=== PATIENT | female | born 1945 | race Caucasian/White ===

== ENCOUNTER 2017-10-24 22:46 | Emergency (ER) | payer MEDICARE, BC ==
--- NOTE | 2017-10-24 22:52 | EDM.PDOC ---
ED HPI GENERAL MEDICAL PROBLEM - General Chief Complaint: Chest Pain Stated Complaint: MATTIE AMB Time Seen by Provider: 10/24/17 22:51 - History of Present Illness INITIAL COMMENTS - FREE TEXT/NARRATIVE: 72-year-old female brought in by EMS with shortness of breath and chest pain. This started several days ago she's having worsening shortness of breath she started a Medrol Dosepak today. Her last nebulizer was just prior to coming in the patient has advanced COPD she uses 3 L of oxygen at home continuously. She uses oxygen through her [facility] as well. Patient is had episode of chest pain shortly before coming and this resolved with a single nitroglycerin. The patient had a fairly large TN about 11 years ago. Today the patient discussed her situation with her glaze sprayer in [place] who started her on doxycycline and a Medrol Dosepak. - Related Data Allergies Allergy/AdvReac Type Severity Reaction Status Date / Time pravastatin sodium Allergy Abdominal Verified 10/24/17 22:53 [From Pravachol] Cramps rosuvastatin Allergy Abdominal Verified 10/24/17 22:53 Cramps simvastatin Allergy Abdominal Verified 10/24/17 22:53 Cramps atorvastatin calcium AdvReac Abdominal Verified 10/24/17 22:53 [From Lipitor] Cramps rosuvastatin calcium AdvReac Abdominal Verified 10/24/17 22:53 [From Crestor] Cramps Home Meds: Home Meds Carvedilol [Coreg] 6.25 mg PO BID 05/18/15 [History] Furosemide [Lasix] 80 mg PO DAILY 05/18/15 [History] Isosorbide Mononitrate [Imdur] 60 mg PO BID 05/18/15 [History] Levothyroxine 200 mcg PO DAILY 05/18/15 [History] Losartan [Cozaar] 25 mg PO DAILY 05/18/15 [History] Potassium Chloride [Klor-Con M20] 20 meq PO BID 05/18/15 [History] Tiotropium [Spiriva HandiHaler] 2 puff INH DAILY 05/18/15 [History] Zolpidem [Ambien] 5 mg PO BEDTIME 05/18/15 [History] metFORMIN [Glucophage XR] 500 mg PO DAILY 05/18/15 [History] Albuterol [Proventil Neb Soln] 1 ampule INH Q6HR PRN 09/08/15 [History] Citalopram [Celexa] 20 mg PO DAILY 02/25/16 [History] Pravastatin [Pravachol] 80 mg PO DAILY 02/25/16 [History] methylPREDNISolone [Medrol] 4 mg PO ASDIRECTED #1 dosepk 09/27/16 [Rx] Doxycycline [Vibramycin] 100 mg PO BID 10/24/17 [History] Furosemide 40 mg PO BEDTIME 10/24/17 [History] LORazepam 0.5 mg PO ASDIRECTED PRN 10/24/17 [History] Nitroglycerin [Nitrostat] 0.4 mg SL ASDIRECTED 10/24/17 [History] Pantoprazole Sodium [Protonix] 40 mg DAILY 10/24/17 [History] LORazepam [Ativan] 0.5 mg PO Q12H PRN #15 tablet 10/25/17 [Rx] Past Medical History HEENT History: Reports: Impaired Vision Cardiovascular History: Reports: TN, Other (See Below) Other Cardiovascular History: stents placed, peripheral artery disease, TN 2006. Respiratory History: Reports: COPD, SOB Gastrointestinal History: Reports: Hiatal Hernia Genitourinary History: Reports: None [employer] History: Reports: Psychiatric History: Reports: Anxiety Endocrine/Metabolic History: Reports: Diabetes, Type II, Hypothyroidism Other Endocrine/Metabolic History: Pt takes Metformin - Past Surgical History HEENT Surgical History: Reports: Adenoidectomy, Cataract Surgery, Tonsillectomy GI Surgical History: Reports: Appendectomy, Cholecystectomy, Hernia Repair/Other Social & Family History - Family History Cardiac: Reports: Blood Clots/VTE/DVT, Bypass, TN Other Cardiac Family History: Mother had TN. Other Respiratory Family Hisory: Brother of lung CA. Neurological: Reports: CVA Endocrine/Metabolic: Reports: Diabetes, type II Oncologic: Reports: Lung Other Oncologic Family History: Brother of lung CA. - Tobacco Use Smoking Status *Q: Former Smoker Years of Tobacco use: 30 Packs/Tins Daily: 2 Used Tobacco, but Quit: Yes Month Tobacco Last Used: 2006 Second Hand Smoke Exposure: Yes - Caffeine Use Caffeine Use: Reports: None Caffeine Use Comment: 1-2 cups per day - Recreational Drug Use Recreational Drug Use: No ED ROS GENERAL - Review of Systems Review Of Systems: See Below Constitutional: Reports: Fever (Subjective), Chills HEENT: Reports: No Symptoms Respiratory: Reports: Shortness of Breath, Wheezing, Cough, Sputum Cardiovascular: Reports: Chest Pain, Dyspnea on Exertion. Denies: Palpitations Endocrine: Reports: No Symptoms GI/Abdominal: Reports: No Symptoms : Reports: No Symptoms Musculoskeletal: Reports: No Symptoms Skin: Reports: No Symptoms Neurological: Reports: No Symptoms Psychiatric: Reports: Anxiety. Denies: No Symptoms Hematologic/Lymphatic: Reports: No Symptoms ED EXAM, GENERAL - Physical Exam Exam: See Below Exam Limited By: No Limitations General Appearance: Alert, Moderate Distress, Other (From anxiety breathing difficulties but she is otherwise cooperative) Eye Exam: Bilateral Eye: Normal Inspection Ears: Normal External Exam, Normal Canal, Hearing Grossly Normal, Normal TMs Nose: Normal Inspection, Normal Mucosa, No Blood Throat/Mouth: Normal Inspection, Normal Lips, Normal Teeth, Normal Gums, Normal Oropharynx, Normal Voice, No Airway Compromise Head: Atraumatic, Normocephalic Neck: Normal Inspection, Supple, Non-Tender, Full Range of Motion. No: Lymphadenopathy (L), Lymphadenopathy (R) Respiratory/Chest: Lungs Clear, Decreased Breath Sounds, Other (Significant only diminished breath sounds O2 saturation good will wean her off the nonrebreather interring get her to around 94% and see how she does) Cardiovascular: Regular Rate, Rhythm, No Murmur, Tachycardia (Mild tachycardia regular rate and rhythm), Other (Trace pitting edema around the ankles). No: No Edema, Irregularly Irregular GI/Abdominal: Normal Bowel Sounds, Soft, Non-Tender, Other (Obese) Extremities: Other (Trace pitting edema around the ankles). No: No Pedal Edema , Leg Pain Neurological: Alert, Oriented, Normal Cognition Psychiatric: Anxious Skin Exam: Warm, Dry, Intact Lymphatic: No Adenopathy Course - Vital Signs Last Recorded V/S: Last Vital Signs Temp 36.9 C 10/24/17 22:50 Pulse 102 H 10/24/17 23:24 Resp 37 H 10/24/17 22:50 BP 138/96 H 10/24/17 22:50 Pulse Ox 100 10/24/17 22:50 - Orders/Labs/Meds Orders: Active Orders 24 hr Category Date Time Status EKG Documentation Completion [RC] ASDIRECTED Care 10/24/17 22:58 Active RT Aerosol Therapy [RC] ASDIRECTED Care 10/24/17 23:08 Active Chest 1V Frontal [CR] Stat Exams 10/24/17 23:05 Taken EKG 12 Lead [EK] Stat Ther 10/24/17 22:58 Ordered Labs: Laboratory Tests 10/24/17 10/24/17 10/24/17 Range/Units 23:29 23:29 23:29 WBC 12.72 H (3.98-10.04) K/mm3 RBC 4.52 (3.98-5.22) M/mm3 Hgb 13.4 (11.2-15.7) gm/L Hct 41.1 (34.1-44.9) % MCV 90.9 (79.4-94.8) fl MCH 29.6 (25.6-32.2) pg MCHC 32.6 (32.2-35.5) g/dl RDW Std Deviation 45.9 (36.4-46.3) fL Plt Count 298 (182-369) K/mm3 MPV 9.9 (9.4-12.3) fl Neutrophils % (Manual) 89 H (40-60) % Band Neutrophils % 0 (0-10) % Lymphocytes % (Manual) 8 L (20-40) % Atypical Lymphs % 1 % Monocytes % (Manual) 1 L (2-10) % Eosinophils % (Manual) 0 L (0.7-5.8) % Basophils % (Manual) 0 L (0.1-1.2) Myelocytes % 1 Platelet Estimate Adequate Plt Morphology Comment Normal Poikilocytosis 1+ slight Anisocytosis 1+ slight Microcytosis 1+ slight Macrocytosis 1+ slight Ovalocytes 1+ slight RBC Morph Comment Abnormal PT 10.6 (8.0-13.0) SECONDS INR 0.97 APTT 25 (22-36) SECONDS Sodium 137 (136-145) mEq/L Potassium 4.8 (3.5-5.1) mEq/L Chloride 103 (98-107) mEq/L Carbon Dioxide 24 (21-32) mEq/L Anion Gap 14.8 (5-15) BUN 10 (7-18) mg/dL Creatinine 0.9 (0.55-1.02) mg/dL Est Cr Clr Drug Dosing 51.34 mL/min Estimated GFR (MDRD) > 60 (>60) mL/min BUN/Creatinine Ratio 11.1 L (14-18) Glucose 332 H (83-115) mg/dL Calcium 9.2 (8.5-10.1) mg/dL Total Bilirubin 0.5 (0.2-1.0) mg/dL AST 15 (15-37) U/L ALT 29 (14-59) U/L Alkaline Phosphatase 113 (46-116) U/L Troponin I < 0.017 (0.00-0.056) ng/mL NT-Pro-B Natriuret Pep (0-125) pg/mL Total Protein 7.4 (6.4-8.2) g/dl Albumin 3.6 (3.4-5.0) g/dl Globulin 3.8 gm/dL Albumin/Globulin Ratio 1.0 (1-2) 10/24/17 Range/Units 23:29 WBC (3.98-10.04) K/mm3 RBC (3.98-5.22) M/mm3 Hgb (11.2-15.7) gm/L Hct (34.1-44.9) % MCV (79.4-94.8) fl MCH (25.6-32.2) pg MCHC (32.2-35.5) g/dl RDW Std Deviation (36.4-46.3) fL Plt Count (182-369) K/mm3 MPV (9.4-12.3) fl Neutrophils % (Manual) (40-60) % Band Neutrophils % (0-10) % Lymphocytes % (Manual) (20-40) % Atypical Lymphs % % Monocytes % (Manual) (2-10) % Eosinophils % (Manual) (0.7-5.8) % Basophils % (Manual) (0.1-1.2) Myelocytes % Platelet Estimate Plt Morphology Comment Poikilocytosis Anisocytosis Microcytosis Macrocytosis Ovalocytes RBC Morph Comment PT (8.0-13.0) SECONDS INR APTT (22-36) SECONDS Sodium (136-145) mEq/L Potassium (3.5-5.1) mEq/L Chloride (98-107) mEq/L Carbon Dioxide (21-32) mEq/L Anion Gap (5-15) BUN (7-18) mg/dL Creatinine (0.55-1.02) mg/dL Est Cr Clr Drug Dosing mL/min Estimated GFR (MDRD) (>60) mL/min BUN/Creatinine Ratio (14-18) Glucose (83-115) mg/dL Calcium (8.5-10.1) mg/dL Total Bilirubin (0.2-1.0) mg/dL AST (15-37) U/L ALT (14-59) U/L Alkaline Phosphatase (46-116) U/L Troponin I (0.00-0.056) ng/mL NT-Pro-B Natriuret Pep 3008 H (0-125) pg/mL Total Protein (6.4-8.2) g/dl Albumin (3.4-5.0) g/dl Globulin gm/dL Albumin/Globulin Ratio (1-2) Meds: Medications Discontinued Medications Generic Name Dose Route Start Last Admin Trade Name Freq PRN Reason Stop Dose Admin Albuterol/Ipratropium 3 ml 10/24/17 23:07 10/24/17 23:21 Duoneb 3.0-0.5 Mg/3 Ml NEB 10/24/17 23:08 3 ml ONETIME ONE Administration Furosemide 40 mg 10/24/17 23:47 10/24/17 23:55 Lasix IVPUSH 10/24/17 23:48 40 mg NOW ONE Administration Lorazepam 0.5 mg 10/24/17 23:07 10/24/17 23:33 Ativan IVPUSH 10/24/17 23:08 0.5 mg ONETIME ONE Administration Methylprednisolone Sodium Succinate 125 mg 10/24/17 23:07 10/24/17 23:36 Solu-Medrol IVPUSH 10/24/17 23:08 125 mg ONETIME ONE Administration - Re-Assessments/Exams Free Text/Narrative Re-Assessment/Exam: 10/24/17 23:48 Chest x-ray reviewed which is suggestive of CHF she did just take her evening medications including 40 mg of Lasix by mouth will add an additional 40 mg IV Lasix. Her EKG shows a regular mild tachycardia rate 112 she has a history of atrial fibrillation P waves are hard to see in all leads however EKG is probably more consistent with atrial fibrillation with a regular rhythm at this point. 10/25/17 01:48 Remarkable labs include a proBNP of just slightly over for 3000. Blood sugar 332 , she was started on Medrol Dosepak today. And with her shortness of breath and diminished breath sounds she received 125 mg of Solu-Medrol here. The patient received a dose of Ativan early in her stay in the emergency room as she was quite anxious this did help her significantly. After the IV Lasix as the patient feels much better she is insistent on going home. Did discuss observation, she wants to go home. She should increase her Lasix to 80 mg twice daily she should also follow-up with her regular physician tomorrow for recheck. Recheck her blood sugar and to arrange close outpatient follow-up to get her through this. Her potassium is 4.8 we will not increase her supplemental potassium at this point. The patient may need an echocardiogram if one has not been done recently to reassess her cardiac function. Departure - Departure Time of Disposition: : Disposition: Home, Self-Care 01 Clinical Impression: Congestive heart failure Prescriptions: LORazepam [Ativan] 0.5 mg PO Q12H PRN #15 tablet PRN Reason: Anxiety Referrals: PCP,None [Ordering Only Provider] - Forms: ED Department Discharge Additional Instructions: Return to the emergency room with any questions problems or worsening symptoms. Increase her Lasix to 80 mg twice a day, do this for 3 days, and then per recommendations of your regular physician. Do not change the dose of your potassium supplement. Follow-up with your regular doctor tomorrow for recheck. Continue the Medrol Dosepak and the doxycycline. - My Orders Last 24 Hours: My Active Orders 10/24/17 22:58 EKG Documentation Completion [RC] ASDIRECTED EKG 12 Lead [EK] Stat 10/24/17 23:05 Chest 1V Frontal [CR] Stat 10/24/17 23:08 RT Aerosol Therapy [RC] ASDIRECTED - Assessment/Plan Last 24 Hours: My Active Orders 10/24/17 22:58 EKG Documentation Completion [RC] ASDIRECTED EKG 12 Lead [EK] Stat 10/24/17 23:05 Chest 1V Frontal [CR] Stat 10/24/17 23:08 RT Aerosol Therapy [RC] ASDIRECTED
[2017-10-24 22:53] VITALS: BP 138/96
[2017-10-24] MEDS ORDERED: Albuterol/Ipratropium 3.0-0.5 MG/3 ML Neb Soln NEB ONE (23:07)
[2017-10-24] MEDS ORDERED: LORazepam 2 MG/ML SDV IVPUSH ONE (23:07)
[2017-10-24] MEDS ORDERED: methylPREDNISolone Sodium Succinate 125 MG/2 ML SDV IVPUSH ONE (23:07)
[2017-10-24] MEDS ORDERED: Furosemide 40 MG/4 ML VIAL IVPUSH ONE (23:47)
--- NOTE | 2017-10-25 06:44 | CR ---
Chest: Portable view of the chest was obtained. Comparison: Prior chest x-ray of 09/27/16. Heart size appears slightly enlarged. Tortuous thoracic aorta is seen. Lung markings are diffusely increased which appear stable from previous exam. Emphysematous change is noted. Bony structures are grossly intact. Impression: 1. Findings as noted above. Nothing acute is appreciated on portable chest x-ray when compared to prior exam. Diagnostic code #2
== END 2017-10-25 02:13 | disposition home or self-care (01) ==
LOC: JD.ED 22:46
DX: I50.9 Heart failure, unspecified (principal); E11.9 Type 2 diabetes mellitus without complications; E03.9 Hypothyroidism, unspecified; Z88.8 Allergy status to other drugs, medicaments and biological substances; Z79.899 Other long term (current) drug therapy; Z79.84 Long term (current) use of oral hypoglycemic drugs; Z87.891 Personal history of nicotine dependence
CPT/HCPCS: 36415; 71045; 80053; 83880; 84484; 85025; 85610; 85730; 87804; 93005; 94640; 96374; 96375; 99285; J1940; J2060; J2930; 99284

== ENCOUNTER 2021-05-12 15:11 | Emergency (ER) | payer MEDICARE, BC ==
[2021-05-12 15:24] VITALS: BP 125/54; PULSE 54
[2021-05-12] MEDS ORDERED: Sodium Chloride 0.9% 10 ML Syringe FLUSH PRN (16:05)
--- NOTE | 2021-05-12 16:39 | EDM.PDOC ---
ED HPI GENERAL MEDICAL PROBLEM - General Chief Complaint: Respiratory Problem Stated Complaint: SOB Time Seen by Provider: 05/12/21 15:21 Source of Information: Reports: Patient History Limitations: Reports: No Limitations - History of Present Illness INITIAL COMMENTS - FREE TEXT/NARRATIVE: 75-year-old female presents the emergency department today with a 3-day history of increased shortness of breath. Patient is oxygen dependent and has been for the past 5 years. She normally wears oxygen at 3 L per nasal cannula however had worsening shortness of breath this morning. She called her primary care provider's office and the nurse advised her to increase her oxygen to 5 L per nasal cannula. She does have an albuterol nebulizer which she uses at home and states this helps for about an hour but then begins to feel very short of breath again. Patient states she feels as though she just cannot catch her breath and that her chest feels "tight". She has an occasional cough however it is nonproductive. She denies any fever, chills, nausea, vomiting or diarrhea. She denies any abdominal pain. She denies any headache or body aches however she does state that she has arthritis pain chronically. Patient does have a history of OH back in 2005 with stent placement. She does have a history of atrial fibrillation for which she takes Eliquis. She does have a history of smoking 1 and half packs a day for 25 years however she states she quit back in 2005. Her primary care provider is Dr. Vora however she states she is switching over to Dr. Dave and does have an appointment scheduled with him for tomorrow. Chest Pain Score (Numeric/FACES): 9 - Related Data Allergies Allergy/AdvReac Type Severity Reaction Status Date / Time No Known Allergies Allergy Verified 05/12/21 15:18 Home Meds: Home Meds Carvedilol [Coreg] 3.125 mg PO BID 05/18/15 [History] Furosemide [Lasix] 80 mg PO BID 05/18/15 [History] Isosorbide Mononitrate [Imdur] 60 mg PO BID 05/18/15 [History] Levothyroxine 112 mcg PO DAILY 05/18/15 [History] Losartan [Cozaar] 25 mg PO DAILY 05/18/15 [History] Potassium Chloride [Klor-Con M20] 20 meq PO BID 05/18/15 [History] Zolpidem [Ambien] 10 mg PO BEDTIME 05/18/15 [History] Citalopram [Celexa] 40 mg PO DAILY 02/25/16 [History] Pravastatin [Pravachol] 40 mg PO DAILY 02/25/16 [History] Nitroglycerin [Nitrostat] 0.4 mg SL ASDIRECTED 10/24/17 [History] Apixaban [Eliquis] 5 mg PO BID 05/04/19 [History] Montelukast [Singulair] 10 mg PO BEDTIME 05/04/19 [History] predniSONE [Prednisone] 40 mg PO DAILY #8 tablet 05/12/21 [Rx] Past Medical History HEENT History: Reports: Impaired Vision Cardiovascular History: Reports: Afib, CAD, High Cholesterol, Hypertension, OH, PVD, Other (See Below) Other Cardiovascular History: stents placed, peripheral artery disease, OH 2006. Respiratory History: Reports: COPD, SOB Other Respiratory History: emphasema Gastrointestinal History: Reports: GERD, Hiatal Hernia Genitourinary History: Reports: Urinary Incontinence [employer] History: Reports: Musculoskeletal History: Reports: Osteoarthritis Neurological History: Reports: Other (See Below) Other Neuro History: back surgery-1995 Psychiatric History: Reports: Anxiety Endocrine/Metabolic History: Reports: Diabetes, Type II, Hypothyroidism, Obesity/BMI 30+ Other Endocrine/Metabolic History: Pt takes Metformin Oncologic (Cancer) History: Reports: Cervix - Infectious Disease History Infectious Disease History: Reports: Chicken Pox, Measles, Mumps, Scarlet Fever - Past Surgical History HEENT Surgical History: Reports: Adenoidectomy, Cataract Surgery, Tonsillectomy Cardiovascular Surgical History: Reports: Coronary Artery Stent, Other (See Below) Other Cardiovascular Surgeries/Procedures: 6 stents Respiratory Surgical History: Reports: None GI Surgical History: Reports: Appendectomy, Cholecystectomy, Hernia, Abdominal Female Surgical History: Reports: Hysterectomy Endocrine Surgical History: Reports: None Musculoskeletal Surgical History: Reports: None Oncologic Surgical History: Reports: None Dermatological Surgical History: Reports: None Social & Family History - Family History Family Medical History: No Pertinent Family History Cardiac: Reports: Blood Clots/VTE/DVT, Bypass, OH Other Cardiac Family History: Mother had OH. Other Respiratory Family Hisory: Brother of lung CA. Neurological: Reports: CVA Endocrine/Metabolic: Reports: Diabetes, type II Oncologic: Reports: Lung Other Oncologic Family History: Brother of lung CA. 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 ED EXAM, GENERAL - Physical Exam Exam: See Below Exam Limited By: No Limitations General Appearance: Alert, WD/WN, No Apparent Distress Ears: Normal External Exam, Hearing Grossly Normal #1 Interpretation EKG Date: 05/12/21 Time: 16:26 Rhythm: A-Fib Rate (Beats/Min): 58 [place]: Normal P-Wave: Absent QRS: Normal ST-T: Normal QT: Normal EKG Interpretation Comments: Per Dr Salvador interpretation; atrial fibrillation at 58 bpm Nonspecific interventricular conduction delay; borderline repolarization abnormality; baseline wander in leads V6 Course - Vital Signs Text/Narrative:: As stated above patient presents with a 3-day history of worsening shortness of breath and feeling like she has chest "tightness". Upon evaluation, patient's lung sounds are diminished posteriorly in all arciniega. O2 saturations at the time of my assessment are 100% on 5 L of oxygen per nasal cannula. I have ordered labs to include Covid swab, CBC, CMP, magnesium, C-reactive protein, D- dimer, troponin, proBNP, arterial blood gases, chest x-ray and an EKG. Last Recorded V/S: Last Vital Signs Temp 97.3 F 05/12/21 15:22 Pulse 54 L 05/12/21 15:22 Resp 24 H 05/12/21 15:22 BP 125/54 L 05/12/21 15:22 Pulse Ox 98 05/12/21 17:43 - Orders/Labs/Meds Orders: Active Orders 24 hr Category Date Time Status RT Aerosol Therapy [RC] ASDIRECTED Care 05/12/21 17:43 Active Chest 1V Frontal [CR] Stat Exams 05/12/21 16:05 Taken ABG [BLOOD GAS ARTERIAL] [BG] Stat Lab 05/12/21 16:06 Ordered LORazepam [Ativan] Med 05/12/21 18:01 Once 0.5 mg PO ONETIME ONE Sodium Chloride 0.9% [Saline Flush] Med 05/12/21 16:05 Active 10 ml FLUSH ASDIRECTED PRN Saline Lock Insert [OM.PC] Stat Oth 05/12/21 16:05 Ordered Medication Orders Sodium Chloride (Sodium Chloride 0.9% 10 Ml Syringe) 10 ml FLUSH ASDIRECTED PRN PRN Reason: Keep Vein Open Last Admin: 05/12/21 16:39 Dose: 10 ml Documented by: RAYO Labs: Laboratory Tests 05/12/21 05/12/21 05/12/21 Range/Units 16:08 16:29 16:35 WBC 5.65 (3.98-10.04) K/mm3 RBC 4.41 (3.98-5.22) M/mm3 Hgb 13.8 (11.2-15.7) gm/dl Hct 43.9 (34.1-44.9) % MCV 99.5 H (79.4-94.8) fl MCH 31.3 (25.6-32.2) pg MCHC 31.4 L (32.2-35.5) g/dl RDW Std Deviation 51.4 H (36.4-46.3) fL Plt Count 254 (182-369) K/mm3 MPV 9.3 L (9.4-12.3) fl Neut % (Auto) 62.9 (34.0-71.1) % Lymph % (Auto) 23.4 (19.3-51.7) % [place] % (Auto) 10.8 (4.7-12.5) % Eos % (Auto) 2.3 (0.7-5.8) Baso % (Auto) 0.4 (0.1-1.2) % Neut # (Auto) 3.56 (1.56-6.13) K/mm3 Lymph # (Auto) 1.32 (1.18-3.74) K/mm3 [place] # (Auto) 0.61 H (0.24-0.36) K/mm3 Eos # (Auto) 0.13 (0.04-0.36) K/mm3 Baso # (Auto) 0.02 (0.01-0.08) K/mm3 D-Dimer, Quantitative (0.19-0.50) mg/L Puncture Site Rt radial ABG pH 7.41 (7.35-7.45) ABG pCO2 41.5 (35.0-45.0) mmHg ABG pO2 77.0 L (80.0-100.0) mmHg ABG HCO3 25.7 (22.0-26.0) meq/L ABG O2 Saturation 97.4 H (96.0-97.0) % ABG Base Excess 1.4 (-2-2.0) Kyree Test Positive O2 Delivery Device Nasal cannula Oxygen Flow Rate 5.0 Sodium (136-145) mEq/L Potassium (3.5-5.1) mEq/L Chloride (98-107) mEq/L Carbon Dioxide (21-32) mEq/L Anion Gap (5-15) BUN (7-18) mg/dL Creatinine (0.55-1.02) mg/dL Est Cr Clr Drug Dosing mL/min Estimated GFR (MDRD) (>60) mL/min BUN/Creatinine Ratio (14-18) Glucose (70-99) mg/dL Calcium (8.5-10.1) mg/dL Magnesium (1.8-2.4) mg/dL Total Bilirubin (0.2-1.0) mg/dL AST (15-37) U/L ALT (14-59) U/L Alkaline Phosphatase (46-116) U/L Troponin I (0.00-0.056) ng/mL C-Reactive Protein (<1.0) mg/dL NT-Pro-B Natriuret Pep (0-450) pg/mL Total Protein (6.4-8.2) g/dl Albumin (3.4-5.0) g/dl Globulin gm/dL Albumin/Globulin Ratio (1-2) SARS-CoV-2 RNA (SHASHI) Negative (NEGATIVE) 05/12/21 05/12/21 05/12/21 Range/Units 16:35 16:35 16:35 WBC (3.98-10.04) K/mm3 RBC (3.98-5.22) M/mm3 Hgb (11.2-15.7) gm/dl Hct (34.1-44.9) % MCV (79.4-94.8) fl MCH (25.6-32.2) pg MCHC (32.2-35.5) g/dl RDW Std Deviation (36.4-46.3) fL Plt Count (182-369) K/mm3 MPV (9.4-12.3) fl Neut % (Auto) (34.0-71.1) % Lymph % (Auto) (19.3-51.7) % [place] % (Auto) (4.7-12.5) % Eos % (Auto) (0.7-5.8) Baso % (Auto) (0.1-1.2) % Neut # (Auto) (1.56-6.13) K/mm3 Lymph # (Auto) (1.18-3.74) K/mm3 [place] # (Auto) (0.24-0.36) K/mm3 Eos # (Auto) (0.04-0.36) K/mm3 Baso # (Auto) (0.01-0.08) K/mm3 D-Dimer, Quantitative 0.32 (0.19-0.50) mg/L Puncture Site ABG pH (7.35-7.45) ABG pCO2 (35.0-45.0) mmHg ABG pO2 (80.0-100.0) mmHg ABG HCO3 (22.0-26.0) meq/L ABG O2 Saturation (96.0-97.0) % ABG Base Excess (-2-2.0) Kyree Test O2 Delivery Device Oxygen Flow Rate Sodium 144 (136-145) mEq/L Potassium 3.2 L (3.5-5.1) mEq/L Chloride 107 (98-107) mEq/L Carbon Dioxide 30 (21-32) mEq/L Anion Gap 10.2 (5-15) BUN 9 (7-18) mg/dL Creatinine 0.8 (0.55-1.02) mg/dL Est Cr Clr Drug Dosing 55.13 mL/min Estimated GFR (MDRD) > 60 (>60) mL/min BUN/Creatinine Ratio 11.3 L (14-18) Glucose 112 H (70-99) mg/dL Calcium 9.0 (8.5-10.1) mg/dL Magnesium 2.4 (1.8-2.4) mg/dL Total Bilirubin 0.7 (0.2-1.0) mg/dL AST 17 (15-37) U/L ALT 21 (14-59) U/L Alkaline Phosphatase 79 (46-116) U/L Troponin I < 0.017 (0.00-0.056) ng/mL C-Reactive Protein < 0.2 (<1.0) mg/dL NT-Pro-B Natriuret Pep 486 H (0-450) pg/mL Total Protein 7.6 (6.4-8.2) g/dl Albumin 3.8 (3.4-5.0) g/dl Globulin 3.8 gm/dL Albumin/Globulin Ratio 1.0 (1-2) SARS-CoV-2 RNA (SHASHI) (NEGATIVE) Meds: Medications Generic Name Dose Route Start Last Admin Trade Name Freq PRN Reason Stop Dose Admin Sodium Chloride 10 ml 05/12/21 16:05 05/12/21 16:39 Sodium Chloride 0.9% 10 Ml Syringe FLUSH 10 ml ASDIRECTED PRN Administration Keep Vein Open Discontinued Medications Generic Name Dose Route Start Last Admin Trade Name Freq PRN Reason Stop Dose Admin Albuterol 2.5 mg 05/12/21 17:43 05/12/21 17:53 Albuterol 0.083% 2.5 Mg/3 Ml Neb Soln NEB 05/12/21 17:44 2.5 mg ONETIME ONE Administration Lorazepam 0.5 mg 05/12/21 16:40 05/12/21 16:45 Lorazepam 0.5 Mg Tab PO 05/12/21 16:41 0.5 mg ONETIME ONE Administration Prednisone 40 mg 05/12/21 17:55 Prednisone 20 Mg Tab PO 05/12/21 17:56 ONETIME ONE - Re-Assessments/Exams Free Text/Narrative Re-Assessment/Exam: 05/12/21 16:39 Patient is extremely anxious in the room and is stating that her BuSpar does not work. She is requesting something for anxiety at this time. I will order for her to receive 1/2 mg of Ativan p.o. x1 dose. 05/12/21 17:47 Hematology reveals a WBC of 5.65, hemoglobin 13.8, hematocrit 43.9, platelet count 254 Coagulation shows a D-dimer of 0.32 Chemistry reveals a sodium of 144, potassium 3.2, carbon dioxide 30, anion gap 10.2, BUN 9, creatinine 0.8, glucose 112, magnesium 2.4, troponin less than 0.017, C-reactive protein less than 0.2, proBNP 486 Patient is Covid negative ABGs show a pH of 7.41, PCO2 41.5, PO2 77.0, HCO3 25.7, O2 saturation 97.4, base excess 1.4 on 5 L of oxygen per nasal cannula Patient does use scheduled albuterol nebulizers at home and is requesting to have 1 now. I have ordered this for the patient. 05/12/21 17:49 [facility]Rad radiologist impression: The pulmonary vasculature is not engorged. The lungs are normal. There are no pleural effusions visualized. The heart demonstrates mild diffuse enlargement. Bones and joints are unremarkable. Impression: Mild cardiomegaly. 05/12/21 17:[address] Salvador, patient will be treated for COPD. She will receive her first dose of prednisone while here in the ED and then discharged to home. 05/12/21 18:02 Patient states that the Ativan helped significantly for her anxiety and states she feels as though she is breathing easier. She has asked me for a prescription for Ativan however she does have a appointment with her primary care provider in the morning. I will give her 1 tab to take home tonight and then she will need to get a prescription from her provider tomorrow. Departure - Departure Time of Disposition: 17:57 Disposition: Home, Self-Care 01 Condition: Fair Clinical Impression: COPD (chronic obstructive pulmonary disease) Qualifiers: COPD type: emphysema Emphysema type: unspecified Qualified Code(s): J43.9 - Emphysema, unspecified - Discharge Information Prescriptions: predniSONE [Prednisone] 40 mg PO DAILY #8 tablet Instructions: Chronic Obstructive Pulmonary Disease Exacerbation, [id number] Referrals: PCP,None [Primary Care Provider] - Adama Sorenson MD [Physician] - Forms: ED Department Discharge Additional Instructions: You were seen in the emergency department today with complaints of increased shortness of breath and chest tightness. Full cardiac work-up was completed which included EKG, chest x-ray and lab studies as well as arterial blood gases. All of these tests were essentially unremarkable other than your potassium level was slightly low. You were given 1 dose of potassium while in the emergency department. You were also given prednisone while in the emergency department. I suspect the cause of your shortness of breath is a COPD exacerbation. You were given prednisone 40 mg tab while in the emergency department. I have sent a prescription for prednisone 40 mg daily to be taken for the next 4 days starting tomorrow. Follow-up with Dr. Sorenson tomorrow as scheduled. Sepsis Event Note (ED) - Focused Exam Vital Signs: Vital Signs Temp Pulse Resp BP Pulse Ox Pulse Ox 05/12/21 17:43 98 05/12/21 15:22 97.3 F 54 L 24 H 125/54 L 99 - My Orders Last 24 Hours: My Active Orders 05/12/21 16:05 Chest 1V Frontal [CR] Stat Sodium Chloride 0.9% [Saline Flush] 10 ml FLUSH ASDIRECTED PRN Saline Lock Insert [OM.PC] Stat 05/12/21 16:06 ABG [BLOOD GAS ARTERIAL] [BG] Stat 05/12/21 17:43 RT Aerosol Therapy [RC] ASDIRECTED 05/12/21 18:01 LORazepam [Ativan] 0.5 mg PO ONETIME ONE - Assessment/Plan Last 24 Hours: My Active Orders 05/12/21 16:05 Chest 1V Frontal [CR] Stat Sodium Chloride 0.9% [Saline Flush] 10 ml FLUSH ASDIRECTED PRN Saline Lock Insert [OM.PC] Stat 05/12/21 16:06 ABG [BLOOD GAS ARTERIAL] [BG] Stat 05/12/21 17:43 RT Aerosol Therapy [RC] ASDIRECTED 05/12/21 18:01 LORazepam [Ativan] 0.5 mg PO ONETIME ONE
[2021-05-12] MEDS ORDERED: LORazepam 0.5 MG Tab PO ONE ×2 (16:40→18:01)
[2021-05-12] MEDS ORDERED: Albuterol 0.083% 2.5 MG/3 ML Neb Soln NEB ONE (17:43)
[2021-05-12] MEDS ORDERED: predniSONE 20 MG Tab PO ONE (17:55)
[2021-05-12] MEDS ORDERED: Potassium Chloride 20 MEQ Tab.ER PO ONE (18:05)
--- NOTE | 2021-05-12 19:45 | CR ---
Chest: Frontal view of the chest was obtained. Comparison: Prior chest x-ray of 05/04/19. Heart is enlarged. Tortuous thoracic aorta is seen. Lungs are clear with no acute parenchymal change. No discrete osseous abnormality is appreciated. Impression: 1. Cardiomegaly. 2. Nothing acute is otherwise seen on frontal chest x-ray. Diagnostic code #2 I agree with preliminary report from [facility], finalized on 05/12/21, 6:26 PM CDT, code 1
== END 2021-05-12 18:25 | disposition home or self-care (01) ==
LOC: JD.ED 15:11
DX: J43.9 Emphysema, unspecified (principal); I48.91 Unspecified atrial fibrillation; I25.10 Atherosclerotic heart disease of native coronary artery without angina pectoris; E78.00 Pure hypercholesterolemia, unspecified; I10 Essential (primary) hypertension; I25.2 Old myocardial infarction; E11.9 Type 2 diabetes mellitus without complications; E03.9 Hypothyroidism, unspecified; E66.9 Obesity, unspecified; Z79.84 Long term (current) use of oral hypoglycemic drugs; Z68.36 Body mass index [BMI] 36.0-36.9, adult; Z79.01 Long term (current) use of anticoagulants; Z79.899 Other long term (current) drug therapy; Z72.0 Tobacco use; Z20.822 Contact with and (suspected) exposure to COVID-19
CPT/HCPCS: 36415; 36600; 71045; 80053; 82803; 83735; 83880; 84484; 85025; 85379; 86140; 93005; 94640; 99285; A9270; J7512; U0002; 93010; 99283

== ENCOUNTER 2021-05-26 15:36 | Emergency (ER) | payer MEDICARE, BC ==
[2021-05-26 15:48] VITALS: BP 102/75; PULSE 77
--- NOTE | 2021-05-26 16:34 | EDM.PDOC ---
ED HPI GENERAL MEDICAL PROBLEM - General Chief Complaint: Respiratory Problem Stated Complaint: SOB Time Seen by Provider: 05/26/21 15:47 Source of Information: Reports: Patient, RN Notes Reviewed History Limitations: Reports: No Limitations - History of Present Illness INITIAL COMMENTS - FREE TEXT/NARRATIVE: Patient is a 75-year-old female presenting to the emergency department with complaints of worsening of shortness of breath. She has history of COPD and is chronically on 3 to 5 L of oxygen by nasal cannula. She reports that over the last few weeks, she has been experiencing worsening of shortness of breath. She was seen in this emergency department on 12 May and put on prednisone which she states did help her significantly; however, shortly after finishing the medication, her symptoms returned. She reports feeling anxious and feels that anxiety is likely a component of her shortness of breath. Last time she was in the ER, she received Ativan which she states did help. She was started on alprazolam by her primary care but states that this does not seem to be helping. She has tried buspirone in the past and states "that did nothing ". She denies any significant chest pain. She has had no fever, chills, nausea, vomiting, or diarrhea. Denies any recent sick contacts. She has received both Covid vaccinations. Chest Pain Score (Numeric/FACES): 7 - Related Data Allergies Allergy/AdvReac Type Severity Reaction Status Date / Time No Known Allergies Allergy Verified 05/26/21 15:48 Home Meds: Home Meds Carvedilol [Coreg] 3.125 mg PO BID 05/18/15 [History] Furosemide [Lasix] 80 mg PO BID 05/18/15 [History] Isosorbide Mononitrate [Imdur] 60 mg PO BID 05/18/15 [History] Levothyroxine 112 mcg PO DAILY 05/18/15 [History] Potassium Chloride [Klor-Con M20] 20 meq PO DAILY 05/18/15 [History] Zolpidem [Ambien] 5 mg PO BEDTIME 05/18/15 [History] Pravastatin [Pravachol] 40 mg PO DAILY 02/25/16 [History] Nitroglycerin [Nitrostat] 0.4 mg SL ASDIRECTED PRN 10/24/17 [History] Apixaban [Eliquis] 5 mg PO BID 05/04/19 [History] Montelukast [Singulair] 10 mg PO BEDTIME 05/04/19 [History] ALPRAZolam [Alprazolam] 0.25 mg PO TID PRN 05/26/21 [History] Albuterol [Proventil Neb Soln] 1 dose IH Q6H PRN 05/26/21 [History] Baclofen 5 mg PO BEDTIME 05/26/21 [History] Budesonide/Formoterol [Symbicort 160-4.5 MCG] 2 puff IH BID 05/26/21 [History] Cyanocobalamin (Vitamin B12) [Vitamin B12] 1,000 mcg PO DAILY 05/26/21 [History] Donepezil [Aricept] 5 mg PO BEDTIME 05/26/21 [History] Empagliflozin [Jardiance] 10 mg PO DAILY 05/26/21 [History] Fluticasone/Vilanterol [Breo Ellipta 200-25 MCG Inhalation Kit] 1 puff IH DAILY 05/26/21 [History] LORazepam [Ativan] 0.5 mg PO Q8H PRN #21 tab 05/26/21 [Rx] Sertraline [Zoloft] 25 mg PO DAILY 05/26/21 [History] Tiotropium [place] [Spiriva Respimat] 2 puff IH DAILY 05/26/21 [History] busPIRone HCl [Buspirone HCl] 7.5 mg PO TID 05/26/21 [History] metFORMIN [Glucophage] 250 mg PO DAILY 05/26/21 [History] predniSONE [Prednisone] 20 mg PO ASDIRECTED #15 tablet 05/26/21 [Rx] Past Medical History HEENT History: Reports: Impaired Vision Cardiovascular History: Reports: Afib, CAD, High Cholesterol, Hypertension, [place], PVD, Other (See Below) Other Cardiovascular History: stents placed, peripheral artery disease, [place] 2006. 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 Incontinence [place]CHER History: Reports: Musculoskeletal History: Reports: Osteoarthritis Neurological History: Reports: Other (See Below) Other Neuro History: back surgery-1995 Psychiatric History: Reports: Anxiety Endocrine/Metabolic History: Reports: Diabetes, Type II, Hypothyroidism, Obesity/BMI 30+ Other Endocrine/Metabolic History: Pt takes Metformin Oncologic (Cancer) History: Reports: Cervix - Infectious Disease History Infectious Disease History: Reports: Chicken Pox, Measles, Mumps, Scarlet Fever - Past Surgical History HEENT Surgical History: Reports: Adenoidectomy, Cataract Surgery, Tonsillectomy Cardiovascular Surgical History: Reports: Coronary Artery Stent, Other (See Below) Other Cardiovascular Surgeries/Procedures: 6 stents Respiratory Surgical History: Reports: None GI Surgical History: Reports: Appendectomy, Cholecystectomy, Hernia, Abdominal Female Surgical History: Reports: Hysterectomy Endocrine Surgical History: Reports: None Musculoskeletal Surgical History: Reports: None Oncologic Surgical History: Reports: None Dermatological Surgical History: Reports: None Social & Family History - Family History Family Medical History: No Pertinent Family History Cardiac: Reports: Blood Clots/VTE/DVT, Bypass, MO Other Cardiac Family History: Mother had MO. Other Respiratory Family Hisory: Brother of lung CA. Neurological: Reports: CVA Endocrine/Metabolic: Reports: Diabetes, type II Oncologic: Reports: Lung Other Oncologic Family History: Brother of lung CA. 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 Denies: Fever, Chills HEENT: Reports: No Symptoms Respiratory: Reports: Shortness of Breath, Wheezing, Cough Cardiovascular: Reports: Dyspnea on Exertion. Denies: Chest Pain Endocrine: Reports: No Symptoms GI/Abdominal: Reports: No Symptoms : Reports: No Symptoms Musculoskeletal: Reports: No Symptoms Skin: Reports: No Symptoms Neurological: Reports: No Symptoms Psychiatric: Reports: Anxiety Hematologic/Lymphatic: Reports: No Symptoms Immunologic: Reports: No Symptoms ED EXAM, GENERAL - Physical Exam Exam: See Below Exam Limited By: No Limitations General Appearance: Alert, WD/WN, No Apparent Distress Respiratory/Chest: No Respiratory Distress, Lungs Clear, No Accessory Muscle Use, Chest Non-Tender, Decreased Breath Sounds (Posteriorly throughout). No: Rhonchi, Wheezing Cardiovascular: Normal Peripheral Pulses, Regular Rate, Rhythm, No Edema, No Gallop, No JVD, No Murmur, No Rub GI/Abdominal: Normal Bowel Sounds, Soft, Non-Tender, No Organomegaly, No Distention, No Abnormal Bruit, No Mass Neurological: Alert, Oriented, CN II-XII Intact, Normal Cognition, Normal Gait, Normal Reflexes, No Motor/Sensory Deficits Psychiatric: Normal Affect, Normal Mood Skin Exam: Warm, Dry, Intact, Normal Color, No Rash #1 Interpretation EKG Date: 05/26/21 Time: 15:47 Rhythm: A-Flutter Rate (Beats/Min): 68 [place]: RAD-Right [place] Deviation P-Wave: Absent QRS: Other (RBB and LPFB) ST-T: Normal QT: Prolonged (moderately) Course - Vital Signs Last Recorded V/S: Last Vital Signs Temp 96.9 F 05/26/21 15:44 Pulse 77 05/26/21 15:44 Resp 20 05/26/21 15:44 BP 102/75 05/26/21 15:44 Pulse Ox 93 L 05/26/21 17:42 - Orders/Labs/Meds Orders: Active Orders 24 hr Category Date Time Status Chest 1V Frontal [CR] Stat Exams 05/26/21 15:51 Taken Labs: Laboratory Tests 05/26/21 05/26/21 05/26/21 Range/Units 15:53 16:14 16:14 WBC 8.71 (3.98-10.04) K/mm3 RBC 4.90 (3.98-5.22) M/mm3 Hgb 15.4 D (11.2-15.7) gm/dl Hct 49.0 H (34.1-44.9) % MCV 100.0 H (79.4-94.8) fl MCH 31.4 (25.6-32.2) pg MCHC 31.4 L (32.2-35.5) g/dl RDW Std Deviation 51.0 H (36.4-46.3) fL Plt Count 268 (182-369) K/mm3 MPV 9.8 (9.4-12.3) fl Neut % (Auto) 75.5 H (34.0-71.1) % Lymph % (Auto) 14.7 L (19.3-51.7) % [place] % (Auto) 7.6 (4.7-12.5) % Eos % (Auto) 1.7 (0.7-5.8) Baso % (Auto) 0.3 (0.1-1.2) % Neut # (Auto) 6.57 H (1.56-6.13) K/mm3 Lymph # (Auto) 1.28 (1.18-3.74) K/mm3 [place] # (Auto) 0.66 H (0.24-0.36) K/mm3 Eos # (Auto) 0.15 (0.04-0.36) K/mm3 Baso # (Auto) 0.03 (0.01-0.08) K/mm3 D-Dimer, Quantitative (0.19-0.50) mg/L Sodium 140 (136-145) mEq/L Potassium 4.1 (3.5-5.1) mEq/L Chloride 102 (98-107) mEq/L Carbon Dioxide 30 (21-32) mEq/L Anion Gap 12.1 (5-15) BUN 10 (7-18) mg/dL Creatinine 0.9 (0.55-1.02) mg/dL Est Cr Clr Drug Dosing 49.00 mL/min Estimated GFR (MDRD) > 60 (>60) mL/min BUN/Creatinine Ratio 11.1 L (14-18) Glucose 133 H (70-99) mg/dL Calcium 9.3 (8.5-10.1) mg/dL Total Bilirubin 0.9 (0.2-1.0) mg/dL AST 15 (15-37) U/L ALT 24 (14-59) U/L Alkaline Phosphatase 92 (46-116) U/L Troponin I < 0.017 (0.00-0.056) ng/mL C-Reactive Protein 0.3 (<1.0) mg/dL NT-Pro-B Natriuret Pep (0-450) pg/mL Total Protein 8.4 H (6.4-8.2) g/dl Albumin 4.3 (3.4-5.0) g/dl Globulin 4.1 gm/dL Albumin/Globulin Ratio 1.1 (1-2) SARS-CoV-2 RNA (SHASHI) Negative (NEGATIVE) 05/26/21 05/26/21 Range/Units 16:14 16:14 WBC (3.98-10.04) K/mm3 RBC (3.98-5.22) M/mm3 Hgb (11.2-15.7) gm/dl Hct (34.1-44.9) % MCV (79.4-94.8) fl MCH (25.6-32.2) pg MCHC (32.2-35.5) g/dl RDW Std Deviation (36.4-46.3) fL Plt Count (182-369) K/mm3 MPV (9.4-12.3) fl Neut % (Auto) (34.0-71.1) % Lymph % (Auto) (19.3-51.7) % [place] % (Auto) (4.7-12.5) % Eos % (Auto) (0.7-5.8) Baso % (Auto) (0.1-1.2) % Neut # (Auto) (1.56-6.13) K/mm3 Lymph # (Auto) (1.18-3.74) K/mm3 [place] # (Auto) (0.24-0.36) K/mm3 Eos # (Auto) (0.04-0.36) K/mm3 Baso # (Auto) (0.01-0.08) K/mm3 D-Dimer, Quantitative 0.36 (0.19-0.50) mg/L Sodium (136-145) mEq/L Potassium (3.5-5.1) mEq/L Chloride (98-107) mEq/L Carbon Dioxide (21-32) mEq/L Anion Gap (5-15) BUN (7-18) mg/dL Creatinine (0.55-1.02) mg/dL Est Cr Clr Drug Dosing mL/min Estimated GFR (MDRD) (>60) mL/min BUN/Creatinine Ratio (14-18) Glucose (70-99) mg/dL Calcium (8.5-10.1) mg/dL Total Bilirubin (0.2-1.0) mg/dL AST (15-37) U/L ALT (14-59) U/L Alkaline Phosphatase (46-116) U/L Troponin I (0.00-0.056) ng/mL C-Reactive Protein (<1.0) mg/dL NT-Pro-B Natriuret Pep 315 (0-450) pg/mL Total Protein (6.4-8.2) g/dl Albumin (3.4-5.0) g/dl Globulin gm/dL Albumin/Globulin Ratio (1-2) SARS-CoV-2 RNA (SHASHI) (NEGATIVE) Meds: Medications Discontinued Medications Generic Name Dose Route Start Last Admin Trade Name [place] PRN Reason Stop Dose Admin Albuterol/Ipratropium 3 ml 05/26/21 17:24 05/26/21 17:42 Albuterol/Ipratropium 3.0-0.5 Mg/3 Ml Neb Soln NEB 05/26/21 17:25 3 ml ONETIME ONE Administration Lorazepam 0.5 mg 05/26/21 17:25 05/26/21 17:33 Lorazepam 0.5 Mg Tab PO 05/26/21 17:26 0.5 mg ONETIME ONE Administration Prednisone 40 mg 05/26/21 17:25 05/26/21 17:33 Prednisone 10 Mg Tab PO 05/26/21 17:26 40 mg ONETIME ONE Administration Prednisone Confirm 05/26/21 17:34 Prednisone 10 Mg Tab Administered 05/26/21 17:35 Dose 10 mg .ROUTE .STK-MED ONE - Re-Assessments/Exams Free Text/Narrative Re-Assessment/Exam: Patient is a 75-year-old female presenting to the emergency department with complaints of ongoing shortness of breath which she feels is worsening. She does have a history of COPD and wears 3 to 5 L of oxygen by nasal cannula at home. On arrival to ER, she was initially wearing 5 L, however the time my exam she requested to turn her down to 3 L. She is maintaining saturations in the low 90s. Lung sounds are diminished but there are no adventitious lung sounds. She does have a history of anxiety and was started on a new medication however she cannot remember the name of it. She reports this is not helping. I have ordered blood work, EKG, chest x-ray. 05/26/21 17:22 Work-up is grossly unremarkable. Troponin and D-dimer are both normal. Chest x-ray shows no evidence pneumonia. Feel her shortness of breath is likely anxiety related, however, COPD exacerbation is also possible. She is maintaining oxygen saturations in the low 90s on her 3 L of oxygen by nasal cannula. We did contact the pharmacy. She was prescribed alprazolam 0.25 mg 3 times daily as needed for anxiety, however she feels that this is making her symptoms worse. She has taking Ativan in the past and states that it did help. I will write a short prescription for Ativan 0.5 mg 3 times daily as needed anxiety as well as tapering prednisone. Discussed that she should not take the Ativan with the alprazolam. She states "I'm going to throw that stuff in the toilet ". Her primary care provider, Dr. Dave, is going to be out of the office for an extended period of time. She requested that I send a referral to one of the providers in our medical clinic. I will send referral to Dr. Murphy Duran MD. recommend that she call tomorrow to set up a follow-up visit. Discussed return precautions. Discharge instructions as documented. Departure - Departure Time of Disposition: 17:23 Disposition: Home, Self-Care 01 Condition: Good Clinical Impression: Anxiety COPD (chronic obstructive pulmonary disease) Qualifiers: COPD type: emphysema Emphysema type: unspecified Qualified Code(s): J43.9 - Emphysema, unspecified - Discharge Information *PRESCRIPTION DRUG MONITORING PROGRAM REVIEWED*: No *COPY OF PRESCRIPTION DRUG MONITORING REPORT IN PATIENT TEJINDER: No Prescriptions: LORazepam [Ativan] 0.5 mg PO Q8H PRN #21 tab PRN Reason: Anxiety predniSONE [Prednisone] 20 mg PO ASDIRECTED #15 tablet Instructions: Shortness of Breath, Adult, [id number], Chronic Obstructive Pulmonary Disease, Managing Anxiety, Adult Referrals: Murphy Ignacio MD [Physician] - Forms: ED Department Discharge Additional Instructions: You were seen in the emergency department today for ongoing shortness of breath. Work-up included blood work, chest x-ray, and Covid test. Results of your work- up were found to be normal. As we discussed, symptoms are likely related to anxiety as well as a possible exacerbation of your COPD. You been started on prednisone. Take this as prescribed starting tomorrow. Your first dose was given in the ER this evening. You have also been provided a prescription for Ativan (lorazepam). You received a dose of this in the emergency department as well. Use this only as prescribed for anxiety. Do not take your alprazolam while you are taking this medication. Referral has been sent to Dr. Murphy Ignacio MD. recommend calling his office tomorrow morning to set up a follow-up visit. The number to schedule with him at [phone]. You should experience any new or worsening symptoms, please do not hesitate to return to the emergency department for reevaluation. Sepsis Event Note (ED) - Evaluation Sepsis Screening Result: No Definite Risk - Focused Exam Vital Signs: Vital Signs Temp Pulse Resp BP Pulse Ox Pulse Ox 05/26/21 17:42 93 L 05/26/21 15:44 96.9 F 77 20 102/75 96 - My Orders Last 24 Hours: My Active Orders 05/26/21 15:51 Chest 1V Frontal [CR] Stat - Assessment/Plan Last 24 Hours: My Active Orders 05/26/21 15:51 Chest 1V Frontal [CR] Stat
[2021-05-26] MEDS ORDERED: Albuterol/Ipratropium 3.0-0.5 MG/3 ML Neb Soln NEB ONE (17:24)
[2021-05-26] MEDS ORDERED: LORazepam 0.5 MG Tab PO ONE (17:25)
[2021-05-26] MEDS ORDERED: predniSONE 10 MG Tab PO ONE (17:25)
[2021-05-26] MEDS ORDERED: predniSONE 10 MG Tab ONE (17:34)
--- NOTE | 2021-05-27 10:27 | CR ---
Chest: Portable view of the chest was obtained. Comparison: Prior chest x-ray on 05/17/21. Note: This study has only now been submitted for final interpretation. Heart is enlarged. Tortuous thoracic aorta is noted. Lungs are clear with no acute parenchymal change. Bony structures are osteopenic with mild scoliosis noted within the spine. Impression: 1. Cardiomegaly. Other incidental findings. 2. Nothing acute is appreciated on portable chest x-ray. Diagnostic code #2
== END 2021-05-26 17:56 | disposition home or self-care (01) ==
LOC: JD.ED 15:36
DX: J43.9 Emphysema, unspecified (principal); F41.9 Anxiety disorder, unspecified; I48.91 Unspecified atrial fibrillation; I25.10 Atherosclerotic heart disease of native coronary artery without angina pectoris; E78.00 Pure hypercholesterolemia, unspecified; I10 Essential (primary) hypertension; I25.2 Old myocardial infarction; K21.9 Gastro-esophageal reflux disease without esophagitis; E11.9 Type 2 diabetes mellitus without complications; E03.9 Hypothyroidism, unspecified; E66.9 Obesity, unspecified; Z68.36 Body mass index [BMI] 36.0-36.9, adult; Z87.891 Personal history of nicotine dependence; Z79.84 Long term (current) use of oral hypoglycemic drugs; Z79.899 Other long term (current) drug therapy; Z79.01 Long term (current) use of anticoagulants; Z20.822 Contact with and (suspected) exposure to COVID-19
CPT/HCPCS: 36415; 71045; 80053; 83880; 84484; 85025; 85379; 86140; 93005; 94640; 99285; A9270; J7512; U0002; J7620-GY

== ENCOUNTER 2021-07-02 14:30 | Emergency (ER) | payer MEDICARE, BC ==
[2021-07-02 14:49] VITALS: BP 130/60; PULSE 62
[2021-07-02] MEDS ORDERED: Sodium Chloride 0.9% 10 ML Syringe FLUSH PRN (16:21)
--- NOTE | 2021-07-02 16:21 | EDM.PDOC ---
ED HPI GENERAL MEDICAL PROBLEM - General Chief Complaint: Respiratory Problem Stated Complaint: SOB Time Seen by Provider: 07/02/21 16:19 Source of Information: Reports: Patient, RN Notes Reviewed History Limitations: Reports: No Limitations - History of Present Illness INITIAL COMMENTS - FREE TEXT/NARRATIVE: Patient is a 76-year-old female presenting to the emergency department with complaints of shortness of breath and anxiety. Patient reports a history of severe anxiety as well as COPD. She is prescribed alprazolam which she states makes her anxiety and shortness of breath worse. I have seen her in this ER previously and she stated the same. Reports that lorazepam works well for her anxiety. Patient reports approximate 1 month ago she was hospitalized in [place] for COPD exacerbation. She received steroids at that time which she states did help. Over the last 3 to 4 days, she reports worsening shortness of breath and anxiety. She has oxygen at home that she wears as needed. Usually is 1 to 2 L by nasal cannula. Denies any chest pain. She is vaccinated for Covid, but states she has been around her son who had a "bad cold ". Denies any fever, chills, nausea, or vomiting. - Related Data Allergies Allergy/AdvReac Type Severity Reaction Status Date / Time No Known Allergies Allergy Verified 05/26/21 15:48 Home Meds: Home Meds Carvedilol [Coreg] 3.125 mg PO BID 05/18/15 [History] Furosemide [Lasix] 80 mg PO BID 05/18/15 [History] Isosorbide Mononitrate [Imdur] 60 mg PO BID 05/18/15 [History] Levothyroxine 112 mcg PO DAILY 05/18/15 [History] Potassium Chloride [Klor-Con M20] 20 meq PO DAILY 05/18/15 [History] Zolpidem [Ambien] 5 mg PO BEDTIME 05/18/15 [History] Pravastatin [Pravachol] 40 mg PO DAILY 02/25/16 [History] Nitroglycerin [Nitrostat] 0.4 mg SL ASDIRECTED PRN 10/24/17 [History] Apixaban [Eliquis] 5 mg PO BID 05/04/19 [History] Montelukast [Singulair] 10 mg PO BEDTIME 05/04/19 [History] ALPRAZolam [Alprazolam] 0.25 mg PO TID PRN 05/26/21 [History] Albuterol [Proventil Neb Soln] 1 dose IH Q6H PRN 05/26/21 [History] Baclofen 5 mg PO BEDTIME 05/26/21 [History] Budesonide/Formoterol [Symbicort 160-4.5 MCG] 2 puff IH BID 05/26/21 [History] Cyanocobalamin (Vitamin B12) [Vitamin B12] 1,000 mcg PO DAILY 05/26/21 [History] Donepezil [Aricept] 5 mg PO BEDTIME 05/26/21 [History] Empagliflozin [Jardiance] 10 mg PO DAILY 05/26/21 [History] Fluticasone/Vilanterol [Breo Ellipta 200-25 MCG Inhalation Kit] 1 puff IH DAILY 05/26/21 [History] LORazepam [Ativan] 0.5 mg PO Q8H PRN #21 tab 05/26/21 [Rx] Sertraline [Zoloft] 25 mg PO DAILY 05/26/21 [History] Tiotropium [place] [Spiriva Respimat] 2 puff IH DAILY 05/26/21 [History] busPIRone HCl [Buspirone HCl] 7.5 mg PO TID 05/26/21 [History] metFORMIN [Glucophage] 250 mg PO DAILY 05/26/21 [History] predniSONE [Prednisone] 20 mg PO ASDIRECTED #15 tablet 05/26/21 [Rx] Albuterol/Ipratropium [DuoNeb 3.0-0.5 MG/3 ML] 3 ml .XX Q4H PRN #15 ml 07/02/21 [Rx] Amoxicillin/Clavulanate K [Augmentin 875-125 MG] 1 tab PO BID 5 Days #10 tablet 07/02/21 [Rx] LORazepam [Ativan] 0.5 mg PO Q8H PRN #15 tab 07/02/21 [Rx] Potassium Chloride 20 meq PO BID #7 tab.er.prt 07/02/21 [Rx] predniSONE [Prednisone] 20 mg PO ASDIRECTED #15 tablet 07/02/21 [Rx] Past Medical History HEENT History: Reports: Impaired Vision Cardiovascular History: Reports: Afib, CAD, High Cholesterol, Hypertension, OR, PVD, Other (See Below) Other Cardiovascular History: stents placed, peripheral artery disease, OR 2006. 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 Incontinence [employer] History: Reports: Musculoskeletal History: Reports: Osteoarthritis Neurological History: Reports: Other (See Below) Other Neuro History: back surgery-1995 Psychiatric History: Reports: Anxiety Endocrine/Metabolic History: Reports: Diabetes, Type II, Hypothyroidism, Obesity/BMI 30+ Other Endocrine/Metabolic History: Pt takes Metformin Oncologic (Cancer) History: Reports: Cervix - Infectious Disease History Infectious Disease History: Reports: Chicken Pox, Measles, Mumps, Scarlet Fever - Past Surgical History HEENT Surgical History: Reports: Adenoidectomy, Cataract Surgery, Tonsillectomy Cardiovascular Surgical History: Reports: Coronary Artery Stent, Other (See Below) Other Cardiovascular Surgeries/Procedures: 6 stents Respiratory Surgical History: Reports: None GI Surgical History: Reports: Appendectomy, Cholecystectomy, Hernia, Abdominal Female Surgical History: Reports: Hysterectomy Endocrine Surgical History: Reports: None Musculoskeletal Surgical History: Reports: None Oncologic Surgical History: Reports: None Dermatological Surgical History: Reports: None Social & Family History - Family History Family Medical History: No Pertinent Family History Cardiac: Reports: Blood Clots/VTE/DVT, Bypass, OR Other Cardiac Family History: Mother had OR. Other Respiratory Family Hisory: Brother of lung CA. Neurological: Reports: CVA Endocrine/Metabolic: Reports: Diabetes, type II Oncologic: Reports: Lung Other Oncologic Family History: Brother of lung CA. 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 Denies: Fever, Chills, Weakness HEENT: Reports: No Symptoms Respiratory: Reports: Shortness of Breath. Denies: Wheezing, Pleuritic Chest Pain, Cough Cardiovascular: Reports: No Symptoms. Denies: Chest Pain, Lightheadedness, Syncope Endocrine: Reports: No Symptoms GI/Abdominal: Reports: No Symptoms : Reports: No Symptoms Musculoskeletal: Reports: No Symptoms Skin: Reports: No Symptoms Neurological: Reports: No Symptoms Psychiatric: Reports: Anxiety. Denies: Confusion, Homicidal Ideation, Suicidal Ideation Hematologic/Lymphatic: Reports: No Symptoms Immunologic: Reports: No Symptoms ED EXAM, GENERAL - Physical Exam Exam: See Below Exam Limited By: No Limitations General Appearance: Alert, WD/WN, No Apparent Distress Respiratory/Chest: No Respiratory Distress, Lungs Clear, No Accessory Muscle Use, Chest Non-Tender, Decreased Breath Sounds Cardiovascular: Normal Peripheral Pulses, Regular Rate, Rhythm, No Edema, No Gallop, No JVD, No Murmur, No Rub GI/Abdominal: Normal Bowel Sounds, Soft, Non-Tender, No Organomegaly, No Distention, No Abnormal Bruit, No Mass Neurological: Alert, Oriented, CN II-XII Intact, Normal Cognition, Normal Gait, Normal Reflexes, No Motor/Sensory Deficits Psychiatric: Normal Affect, Normal Mood Skin Exam: Warm, Dry, Intact, Normal Color, No Rash Course - Vital Signs Last Recorded V/S: Last Vital Signs Temp 98.5 F 07/02/21 14:48 Pulse 62 07/02/21 14:48 Resp 20 07/02/21 14:48 BP 130/60 07/02/21 14:48 Pulse Ox 92 L 07/02/21 17:49 - Orders/Labs/Meds Orders: Active Orders 24 hr Category Date Time Status Peripheral IV Insertion Adult [OM.PC] Stat Oth 07/02/21 16:21 Ordered Labs: Laboratory Tests 07/02/21 07/02/21 07/02/21 Range/Units 16:37 16:37 16:37 WBC 6.47 (3.98-10.04) K/mm3 RBC 4.44 (3.98-5.22) M/mm3 Hgb 14.2 (11.2-15.7) gm/dl Hct 43.1 (34.1-44.9) % MCV 97.1 H (79.4-94.8) fl MCH 32.0 (25.6-32.2) pg MCHC 32.9 (32.2-35.5) g/dl RDW Std Deviation 49.4 H (36.4-46.3) fL Plt Count 274 (182-369) K/mm3 MPV 9.7 (9.4-12.3) fl Neut % (Auto) 65.6 (34.0-71.1) % Lymph % (Auto) 21.6 (19.3-51.7) % Hughes % (Auto) 10.7 (4.7-12.5) % Eos % (Auto) 1.5 (0.7-5.8) Baso % (Auto) 0.3 (0.1-1.2) % Neut # (Auto) 4.24 (1.56-6.13) K/mm3 Lymph # (Auto) 1.40 (1.18-3.74) K/mm3 Hughes # (Auto) 0.69 H (0.24-0.36) K/mm3 Eos # (Auto) 0.10 (0.04-0.36) K/mm3 Baso # (Auto) 0.02 (0.01-0.08) K/mm3 D-Dimer, Quantitative 0.35 (0.19-0.50) mg/L Sodium 144 (136-145) mEq/L Potassium 2.7 L (3.5-5.1) mEq/L Chloride 103 (98-107) mEq/L Carbon Dioxide 31 (21-32) mEq/L Anion Gap 12.7 (5-15) BUN 12 (7-18) mg/dL Creatinine 0.8 (0.55-1.02) mg/dL Est Cr Clr Drug Dosing 56.36 mL/min Estimated GFR (MDRD) > 60 (>60) mL/min BUN/Creatinine Ratio 15.0 (14-18) Glucose 115 H (70-99) mg/dL Calcium 9.4 (8.5-10.1) mg/dL Total Bilirubin 0.5 (0.2-1.0) mg/dL AST 18 (15-37) U/L ALT 22 (14-59) U/L Alkaline Phosphatase 80 (46-116) U/L Troponin I < 0.017 (0.00-0.056) ng/mL C-Reactive Protein < 0.2 (<1.0) mg/dL NT-Pro-B Natriuret Pep (0-450) pg/mL Total Protein 7.5 (6.4-8.2) g/dl Albumin 3.8 (3.4-5.0) g/dl Globulin 3.7 gm/dL Albumin/Globulin Ratio 1.0 (1-2) SARS-CoV-2 RNA (SHASHI) (NEGATIVE) 07/02/21 07/02/21 Range/Units 16:37 17:00 WBC (3.98-10.04) K/mm3 RBC (3.98-5.22) M/mm3 Hgb (11.2-15.7) gm/dl Hct (34.1-44.9) % MCV (79.4-94.8) fl MCH (25.6-32.2) pg MCHC (32.2-35.5) g/dl RDW Std Deviation (36.4-46.3) fL Plt Count (182-369) K/mm3 MPV (9.4-12.3) fl Neut % (Auto) (34.0-71.1) % Lymph % (Auto) (19.3-51.7) % Hughes % (Auto) (4.7-12.5) % Eos % (Auto) (0.7-5.8) Baso % (Auto) (0.1-1.2) % Neut # (Auto) (1.56-6.13) K/mm3 Lymph # (Auto) (1.18-3.74) K/mm3 Hughes # (Auto) (0.24-0.36) K/mm3 Eos # (Auto) (0.04-0.36) K/mm3 Baso # (Auto) (0.01-0.08) K/mm3 D-Dimer, Quantitative (0.19-0.50) mg/L Sodium (136-145) mEq/L Potassium (3.5-5.1) mEq/L Chloride (98-107) mEq/L Carbon Dioxide (21-32) mEq/L Anion Gap (5-15) BUN (7-18) mg/dL Creatinine (0.55-1.02) mg/dL Est Cr Clr Drug Dosing mL/min Estimated GFR (MDRD) (>60) mL/min BUN/Creatinine Ratio (14-18) Glucose (70-99) mg/dL Calcium (8.5-10.1) mg/dL Total Bilirubin (0.2-1.0) mg/dL AST (15-37) U/L ALT (14-59) U/L Alkaline Phosphatase (46-116) U/L Troponin I (0.00-0.056) ng/mL C-Reactive Protein (<1.0) mg/dL NT-Pro-B Natriuret Pep 574 H (0-450) pg/mL Total Protein (6.4-8.2) g/dl Albumin (3.4-5.0) g/dl Globulin gm/dL Albumin/Globulin Ratio (1-2) SARS-CoV-2 RNA (SHASHI) Negative (NEGATIVE) Meds: Medications Discontinued Medications Generic Name Dose Route Start Last Admin Trade Name Freq PRN Reason Stop Dose Admin Albuterol/Ipratropium 3 ml 07/02/21 16:48 07/02/21 17:49 Albuterol/Ipratropium 3.0-0.5 Mg/3 Ml Neb Soln NEB 07/02/21 16:49 3 ml ONETIME ONE Administration Lorazepam 0.5 mg 07/02/21 16:47 07/02/21 17:42 Lorazepam 0.5 Mg Tab PO 07/02/21 16:48 0.5 mg ONETIME ONE Administration Potassium Chloride 40 meq 07/02/21 18:00 07/02/21 18:05 Potassium Chloride 20 Meq Tab.Er PO 07/02/21 18:01 40 meq ONETIME ONE Administration Sodium Chloride 10 ml 07/02/21 16:21 07/02/21 16:38 Sodium Chloride 0.9% 10 Ml Syringe FLUSH 10 ml ASDIRECTED PRN Administration Keep Vein Open - Re-Assessments/Exams Free Text/Narrative Re-Assessment/Exam: Patient is a 76-year-old female presenting to the emergency department with complaints of shortness of breath. She has chronic COPD and wears 1 to 2 L of oxygen at home as needed. Also reports significant anxiety. I have seen her in the past with similar complaints. Oxygen saturation is 93 to 96% on 1-1/2 L of oxygen. Lung sounds are diminished but exam is otherwise unremarkable. I have ordered blood work, chest x-ray. We will give her a DuoNeb breathing treatment and Ativan 0.5 mg p.o. 07/02/21 19:15 Patient is feeling much better after the DuoNeb breathing treatment and lorazepam. Chest x-ray shows possible minimal pulmonary vascular congestion but no obvious pneumonia. BNP is only slightly elevated at 574. Potassium low at 2.7. She was supplemented with 40 mEq of oral potassium. I will send prescription for potassium 20 mEq twice daily for the next 3 days. We will treat her for COPD exacerbation with DuoNeb breathing treatments, prednisone, and omnicef. I will also start her on lorazepam and advised her not to use her alprazolam. She should follow-up with her primary care provider at his next available visit to discuss changing to lorazepam permanently. Departure - Departure Time of Disposition: 19:23 Disposition: Home, Self-Care 01 Condition: Good Clinical Impression: Hypokalemia COPD (chronic obstructive pulmonary disease) Qualifiers: COPD type: emphysema Emphysema type: unspecified Qualified Code(s): J43.9 - Emphysema, unspecified - Discharge Information Prescriptions: LORazepam [Ativan] 0.5 mg PO Q8H PRN #15 tab PRN Reason: Anxiety Amoxicillin/Clavulanate K [Augmentin 875-125 MG] 1 tab PO BID 5 Days #10 tablet Albuterol/Ipratropium [DuoNeb 3.0-0.5 MG/3 ML] 3 ml .XX Q4H PRN #15 ml PRN Reason: Shortness Of Breath Potassium Chloride 20 meq PO BID #7 tab.er.prt predniSONE [Prednisone] 20 mg PO ASDIRECTED #15 tablet Instructions: Hypokalemia, Chronic Obstructive Pulmonary Disease, [id number] Referrals: Amrit Arteaga MD [Primary Care Provider] - Forms: ED Department Discharge Additional Instructions: You were seen in the emergency department today for worsening of shortness of breath with chronic COPD. Work-up included blood work, chest x-ray. Your potassium was found to be low. You been started on potassium supplementation. While in the ER, you received potassium, Ativan, and a DuoNeb breathing treatment. This did significantly improve your symptoms. You have been started on a number of different medications. Use these as prescribed. Do not take your alprazolam while taking lorazepam. Recommend follow-up with your primary care provider on Tuesday to have your potassium levels rechecked and to discuss changing from alprazolam to lorazepam. - My Orders Last 24 Hours: My Active Orders 07/02/21 16:21 Peripheral IV Insertion Adult [OM.PC] Stat - Assessment/Plan Last 24 Hours: My Active Orders 07/02/21 16:21 Peripheral IV Insertion Adult [OM.PC] Stat
[2021-07-02] MEDS ORDERED: LORazepam 0.5 MG Tab PO ONE (16:47)
[2021-07-02] MEDS ORDERED: Albuterol/Ipratropium 3.0-0.5 MG/3 ML Neb Soln NEB ONE (16:48)
[2021-07-02] MEDS ORDERED: Potassium Chloride 20 MEQ Tab.ER PO ONE (18:00)
--- NOTE | 2021-07-02 20:05 | CR ---
Chest: 2 views of the chest were obtained. Comparison: Prior chest x-ray of 05/26/21. Heart is enlarged. Tortuous thoracic aorta is seen. Lungs are hyperinflated compatible with emphysematous change. Lungs show no acute parenchymal change. Scattered degenerative change is seen within the spine. Bony structures are also osteopenic. Impression: 1. Emphysematous change. 2. Stable cardiomegaly and other findings as described above which are stable. 3. Nothing acute is otherwise seen on 2-view chest x-ray. Diagnostic code #2
== END 2021-07-02 19:40 | disposition home or self-care (01) ==
LOC: JD.ED 14:30
DX: J43.9 Emphysema, unspecified (principal); E87.6 Hypokalemia; I48.91 Unspecified atrial fibrillation; I25.10 Atherosclerotic heart disease of native coronary artery without angina pectoris; E78.00 Pure hypercholesterolemia, unspecified; I10 Essential (primary) hypertension; I25.2 Old myocardial infarction; K21.9 Gastro-esophageal reflux disease without esophagitis; E11.9 Type 2 diabetes mellitus without complications; E03.9 Hypothyroidism, unspecified; E66.9 Obesity, unspecified; Z79.01 Long term (current) use of anticoagulants; Z79.899 Other long term (current) drug therapy; Z87.891 Personal history of nicotine dependence; Z20.822 Contact with and (suspected) exposure to COVID-19; Z68.29 Body mass index [BMI] 29.0-29.9, adult
CPT/HCPCS: 36415; 71046; 71046-26; 80053; 83880; 84484; 85025; 85379; 86140; 94640; 99285-25; A9270-GY; J7620-GY; U0002

== ENCOUNTER 2021-07-15 20:21 | Emergency (ER) | payer MEDICARE, BC ==
[2021-07-15 20:42] VITALS: BP 127/74; PULSE 65
--- NOTE | 2021-07-15 20:56 | EDM.PDOC ---
ED HPI GENERAL MEDICAL PROBLEM - General Chief Complaint: Neuro Symptoms/Deficits Stated Complaint: SOB/HEADACHE/NUMB FACE #stroke alert# Time Seen by Provider: 07/15/21 20:51 - History of Present Illness INITIAL COMMENTS - FREE TEXT/NARRATIVE: 76-year-old female presents the emergency room generally not feeling right she has some facial numbness. Stroke alert was called She woke up this morning having frequent dark black diarrhea. This did let up during the course the day patient just not has been herself. Prior to this she states that after getting her Covid booster she just has not been right but she is having a hard time explaining that. Patient has not noticed any weakness greater on one side than the other she is got no areas of numbness other than some vague numbness in her face. She was active today she went to work but just did not feel right when she came home. Oftentimes her anxiety attacks act like this. She is not having associated chest pain with this. She has had some intermittent heartburn and has been using milk of magnesia for this. - Related Data Allergies Allergy/AdvReac Type Severity Reaction Status Date / Time No Known Allergies Allergy Verified 07/15/21 20:50 Home Meds: Home Meds Carvedilol [Coreg] 3.125 mg PO BID 05/18/15 [History] Furosemide [Lasix] 80 mg PO DAILY 05/18/15 [History] Isosorbide Mononitrate [Imdur] 60 mg PO BID 05/18/15 [History] Levothyroxine 112 mcg PO DAILY 05/18/15 [History] Zolpidem [Ambien] 5 mg PO BEDTIME 05/18/15 [History] Pravastatin [Pravachol] 40 mg PO DAILY 02/25/16 [History] Nitroglycerin [Nitrostat] 0.4 mg SL ASDIRECTED PRN 10/24/17 [History] Apixaban [Eliquis] 5 mg PO BID 05/04/19 [History] Montelukast [Singulair] 10 mg PO BEDTIME 05/04/19 [History] Baclofen 5 mg PO BEDTIME 05/26/21 [History] Budesonide/Formoterol [Symbicort 160-4.5 MCG] 2 puff IH BID 05/26/21 [History] Donepezil [Aricept] 5 mg PO BEDTIME 05/26/21 [History] Empagliflozin [Jardiance] 10 mg PO DAILY 05/26/21 [History] Fluticasone/Vilanterol [Breo Ellipta 200-25 MCG Inhalation Kit] 1 puff IH DAILY 05/26/21 [History] Tiotropium Wedron [Spiriva Respimat] 2 puff IH DAILY 05/26/21 [History] metFORMIN [Glucophage] 500 mg PO DAILY 05/26/21 [History] Albuterol/Ipratropium [DuoNeb 3.0-0.5 MG/3 ML] 3 ml .XX Q4H PRN #15 ml 07/02/21 [Rx] Potassium Chloride 20 meq PO BID #7 tab.er.prt 07/02/21 [Rx] LORazepam [Ativan] 0.5 mg PO Q6H PRN 07/15/21 [History] Past Medical History HEENT History: Reports: Impaired Vision Cardiovascular History: Reports: Afib, CAD, High Cholesterol, Hypertension, [place], PVD, Other (See Below) Other Cardiovascular History: stents placed, peripheral artery disease, [place] 2006. 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: Musculoskeletal History: Reports: Osteoarthritis Neurological History: Reports: Other (See Below) Other Neuro History: back surgery-1995 Psychiatric History: Reports: Anxiety Endocrine/Metabolic History: Reports: Diabetes, Type II, Hypothyroidism, Obesity/BMI 30+ Other Endocrine/Metabolic History: Pt takes Metformin Oncologic (Cancer) History: Reports: Cervix - Infectious Disease History Infectious Disease History: Reports: Chicken Pox, Measles, Mumps, Scarlet Fever - Past Surgical History HEENT Surgical History: Reports: Adenoidectomy, Cataract Surgery, Tonsillectomy Cardiovascular Surgical History: Reports: Coronary Artery Stent, Other (See Below) Other Cardiovascular Surgeries/Procedures: 6 stents Respiratory Surgical History: Reports: None GI Surgical History: Reports: Appendectomy, Cholecystectomy, Hernia, Abdominal Female Surgical History: Reports: Hysterectomy Endocrine Surgical History: Reports: None Musculoskeletal Surgical History: Reports: None Oncologic Surgical History: Reports: None Dermatological Surgical History: Reports: None Social & Family History - Family History Family Medical History: No Pertinent Family History Cardiac: Reports: Blood Clots/VTE/DVT, Bypass, [place] Other Cardiac Family History: Mother had [place]. Other Respiratory Family Hisory: Brother of lung CA. Neurological: Reports: CVA Endocrine/Metabolic: Reports: Diabetes, type II Oncologic: Reports: Lung Other Oncologic Family History: Brother of lung CA. 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 Denies: Headache Psychiatric: Reports: Anxiety ED EXAM, GENERAL - Physical Exam Exam: See Below Exam Limited By: No Limitations General Appearance: Alert, No Apparent Distress Eye Exam: Bilateral Eye: EOMI, Normal Inspection, PERRL Ears: Normal External Exam, Normal Canal, Hearing Grossly Normal, Normal TMs Nose: Normal Inspection, Normal Mucosa, No Blood Throat/Mouth: Normal Inspection, Normal Lips, Normal Teeth, Normal Gums, Normal Oropharynx, Normal Voice, No Airway Compromise Head: Atraumatic, Normocephalic Neck: Normal Inspection, Supple, Non-Tender, Full Range of Motion. No: Lymphadenopathy (L), Lymphadenopathy (R) Respiratory/Chest: No Respiratory Distress, Lungs Clear, Normal Breath Sounds, No Accessory Muscle Use, Chest Non-Tender Cardiovascular: Regular Rate, Rhythm, No Edema, No Murmur GI/Abdominal: Normal Bowel Sounds, Soft, Non-Tender (Female) Exam: Normal External Exam, Normal Speculum Exam, Normal Bimanual Exam Rectal (Female) Exam: Normal Exam, Normal Rectal Tone, Deferred Back Exam: Normal Inspection, Full Range of Motion. No: CVA Tenderness (L), CVA Tenderness (R) Extremities: Normal Inspection, No Pedal Edema Neurological: Other (Annual nerves II through XII grossly intact all muscle groups the upper lower extremities are equal and appropriate bilaterally deep tendon reflexes are equal and appropriate cerebellar testing appears to be roug hly intact) Course - Vital Signs Last Recorded V/S: Last Vital Signs Temp 35.6 C L 07/15/21 20:28 Pulse 65 07/15/21 20:28 Resp 14 07/15/21 20:28 BP 127/74 07/15/21 20:28 Pulse Ox 5 L 07/15/21 20:28 - Orders/Labs/Meds Orders: Active Orders 24 hr Category Date Time Status EKG Documentation Completion [RC] STAT Care 07/16/21 00:06 Ordered Chest 1V Frontal [CR] Stat Exams 07/15/21 20:57 Taken Head wo Cont [CT] Stat Exams 07/15/21 20:57 Taken Labs: Laboratory Tests 07/15/21 07/15/21 07/15/21 Range/Units 20:41 20:45 20:45 WBC (3.98-10.04) K/mm3 RBC (3.98-5.22) M/mm3 Hgb (11.2-15.7) gm/dl Hct (34.1-44.9) % MCV (79.4-94.8) fl MCH (25.6-32.2) pg MCHC (32.2-35.5) g/dl RDW Std Deviation (36.4-46.3) fL Plt Count (182-369) K/mm3 MPV (9.4-12.3) fl Neut % (Auto) (34.0-71.1) % Lymph % (Auto) (19.3-51.7) % Garrett % (Auto) (4.7-12.5) % Eos % (Auto) (0.7-5.8) Baso % (Auto) (0.1-1.2) % Neut # (Auto) (1.56-6.13) K/mm3 Lymph # (Auto) (1.18-3.74) K/mm3 Garrett # (Auto) (0.24-0.36) K/mm3 Eos # (Auto) (0.04-0.36) K/mm3 Baso # (Auto) (0.01-0.08) K/mm3 PT 10.9 (9.7-12.0) SECONDS INR 0.98 APTT 26.5 (21.7-31.4) SECONDS Sodium 143 (136-145) mEq/L Potassium 3.2 L (3.5-5.1) mEq/L Chloride 103 (98-107) mEq/L Carbon Dioxide 29 (21-32) mEq/L Anion Gap 14.2 (5-15) BUN 9 (7-18) mg/dL Creatinine 0.7 (0.55-1.02) mg/dL Est Cr Clr Drug Dosing 64.41 mL/min Estimated GFR (MDRD) > 60 (>60) mL/min BUN/Creatinine Ratio 12.9 L (14-18) Glucose 102 H (70-99) mg/dL POC Glucose 90 (70-99) mg/dL Calcium 9.2 (8.5-10.1) mg/dL Total Bilirubin 0.7 (0.2-1.0) mg/dL AST 14 L (15-37) U/L ALT 17 (14-59) U/L Alkaline Phosphatase 82 (46-116) U/L Troponin I < 0.017 (0.00-0.056) ng/mL Total Protein 7.2 (6.4-8.2) g/dl Albumin 3.8 (3.4-5.0) g/dl Globulin 3.4 gm/dL Albumin/Globulin Ratio 1.1 (1-2) SARS-CoV-2 RNA (SHASHI) (NEGATIVE) 07/15/21 07/15/21 Range/Units 20:45 21:09 WBC 6.29 (3.98-10.04) K/mm3 RBC 4.45 (3.98-5.22) M/mm3 Hgb 14.2 (11.2-15.7) gm/dl Hct 43.6 (34.1-44.9) % MCV 98.0 H (79.4-94.8) fl MCH 31.9 (25.6-32.2) pg MCHC 32.6 (32.2-35.5) g/dl RDW Std Deviation 50.4 H (36.4-46.3) fL Plt Count 304 (182-369) K/mm3 MPV 10.1 (9.4-12.3) fl Neut % (Auto) 61.3 (34.0-71.1) % Lymph % (Auto) 25.8 (19.3-51.7) % Garrett % (Auto) 10.7 (4.7-12.5) % Eos % (Auto) 1.4 (0.7-5.8) Baso % (Auto) 0.6 (0.1-1.2) % Neut # (Auto) 3.86 (1.56-6.13) K/mm3 Lymph # (Auto) 1.62 (1.18-3.74) K/mm3 Garrett # (Auto) 0.67 H (0.24-0.36) K/mm3 Eos # (Auto) 0.09 (0.04-0.36) K/mm3 Baso # (Auto) 0.04 (0.01-0.08) K/mm3 PT (9.7-12.0) SECONDS INR APTT (21.7-31.4) SECONDS Sodium (136-145) mEq/L Potassium (3.5-5.1) mEq/L Chloride (98-107) mEq/L Carbon Dioxide (21-32) mEq/L Anion Gap (5-15) BUN (7-18) mg/dL Creatinine (0.55-1.02) mg/dL Est Cr Clr Drug Dosing mL/min Estimated GFR (MDRD) (>60) mL/min BUN/Creatinine Ratio (14-18) Glucose (70-99) mg/dL POC Glucose (70-99) mg/dL Calcium (8.5-10.1) mg/dL Total Bilirubin (0.2-1.0) mg/dL AST (15-37) U/L ALT (14-59) U/L Alkaline Phosphatase (46-116) U/L Troponin I (0.00-0.056) ng/mL Total Protein (6.4-8.2) g/dl Albumin (3.4-5.0) g/dl Globulin gm/dL Albumin/Globulin Ratio (1-2) SARS-CoV-2 RNA (SHASHI) Negative (NEGATIVE) - Re-Assessments/Exams Free Text/Narrative Re-Assessment/Exam: 07/16/21 00:13 And has done very well here she pretty much figures she had an anxiety attack. She really is insistent on going home I reviewed my records and work-up and nothing revealing thus far however I did notice that an EKG was not ordered I did order one but the patient does not believe she needs one and wants to go home we will discharge her home at this point Departure - Departure Time of Disposition: 00:14 Disposition: Home, Self-Care 01 Clinical Impression: Anxiety attack - Discharge Information Referrals: Amrit Arteaga MD [Primary Care Provider] - Forms: ED Department Discharge Additional Instructions: Return to the emergency room with any questions problems or worsening symptoms. Stop the milk of magnesia this can make you stools change color. Try famotid ine, this is the generic for Pepcid this is [id number] take 1 twice daily for 1 week then 1 daily thereafter for your heartburn. Follow-up with your regular physician in 1 to 2 weeks Sepsis Event Note (ED) - Evaluation Sepsis Screening Result: No Definite Risk - Focused Exam Vital Signs: Vital Signs Temp Pulse Resp BP Pulse Ox 07/15/21 20:28 35.6 C L 65 14 127/74 5 L - My Orders Last 24 Hours: My Active Orders 07/15/21 20:57 Chest 1V Frontal [CR] Stat Head wo Cont [CT] Stat 07/16/21 00:06 EKG Documentation Completion [RC] STAT - Assessment/Plan Last 24 Hours: My Active Orders 07/15/21 20:57 Chest 1V Frontal [CR] Stat Head wo Cont [CT] Stat 07/16/21 00:06 EKG Documentation Completion [RC] STAT
--- NOTE | 2021-07-16 06:40 | CT ---
Head CT Technique: Multiple axial sections through the brain were obtained. Intravenous contrast was not utilized. Reconstructed coronal and sagittal images were obtained. Comparison: No prior intracranial imaging is available. Findings: Ventricles along with basal cisterns and sulci over the convexities are mildly prominent. No abnormal parenchymal densities are seen. No evidence of intracranial hemorrhage is seen. No midline shift or mass-effect is seen. Bone window settings were reviewed. Mild hyperostosis internal frontalis is seen. This is a normal variant. Visualized mastoid sinuses and paranasal sinuses show nothing acute. No acute calvarial abnormality is appreciated. Impression: 1. Mild senescent change as noted above. 2. No acute intracranial abnormality is seen. 3. If patient's symptoms warrant further evaluation, MRI could be considered. Diagnostic code #2 I agree with preliminary report from [facility], finalized on 07/15/21, 10:32 PM CDT, code 1
--- NOTE | 2021-07-16 06:54 | CR ---
Chest: Portable view of the chest was obtained. Comparison: Prior chest x-ray of 07/02/21. Heart is enlarged. Tortuous thoracic aorta is seen. Lungs are hyperinflated compatible with emphysematous change. No definite lung abnormality is appreciated. Bony structures show nothing acute. Impression: 1. Emphysematous change. Mild cardiomegaly. 2. Nothing acute is otherwise seen on portable chest x-ray. Diagnostic code #2
== END 2021-07-16 00:30 | disposition home or self-care (01) ==
LOC: JD.ED 20:21
DX: F41.9 Anxiety disorder, unspecified (principal); I48.91 Unspecified atrial fibrillation; I25.10 Atherosclerotic heart disease of native coronary artery without angina pectoris; E78.00 Pure hypercholesterolemia, unspecified; I10 Essential (primary) hypertension; I25.2 Old myocardial infarction; J44.9 Chronic obstructive pulmonary disease, unspecified; E11.9 Type 2 diabetes mellitus without complications; E03.9 Hypothyroidism, unspecified; E66.9 Obesity, unspecified; Z68.35 Body mass index [BMI] 35.0-35.9, adult; Z79.84 Long term (current) use of oral hypoglycemic drugs; Z79.01 Long term (current) use of anticoagulants; Z79.899 Other long term (current) drug therapy; Z20.822 Contact with and (suspected) exposure to COVID-19
CPT/HCPCS: 36415; 70450; 71045; 80053; 82947; 84484; 85025; 85610; 85730; 99284; U0002

== ENCOUNTER 2021-07-26 00:08 | Emergency (ER) | payer MEDICARE, BC ==
[2021-07-26 00:21] VITALS: BP 112/57; PULSE 66
[2021-07-26] MEDS ORDERED: Lidocaine 4% 1 each Patch TOP PRN (00:37)
[2021-07-26] MEDS ORDERED: Lidocaine 4% 1 each Patch ONE (00:43)
--- NOTE | 2021-07-26 00:48 | EDM.PDOC ---
ED HPI GENERAL MEDICAL PROBLEM - General Chief Complaint: Chest Pain Stated Complaint: [facility] Time Seen by Provider: 07/26/21 00:16 Source of Information: Reports: Patient, EMS, Old Records History Limitations: Reports: No Limitations - History of Present Illness Duration: Week(s): (4), Getting Worse (last 3 days.) Location: Reports: Chest Quality: Reports: Sharp, Stabbing Severity: Moderate Improves with: Reports: None Worsens with: Reports: Breathing Associated Symptoms: Reports: Chest Pain, cough w sputum. Denies: Fever/Chills, Nausea/Vomiting, Shortness of Breath Treatments HEALTH AID: Reports: Aspirin, Nitroglycerin Other Treatments HEALTH AID: 324 mg Chest Pain Score (Numeric/FACES): 6 - Related Data Allergies Allergy/AdvReac Type Severity Reaction Status Date / Time No Known Allergies Allergy Verified 07/26/21 00:14 Home Meds: Home Meds Carvedilol [Coreg] 3.125 mg PO BID 05/18/15 [History] Furosemide [Lasix] 80 mg PO DAILY 05/18/15 [History] Isosorbide Mononitrate [Imdur] 60 mg PO BID 05/18/15 [History] Levothyroxine 112 mcg PO DAILY 05/18/15 [History] Zolpidem [Ambien] 5 mg PO BEDTIME 05/18/15 [History] Pravastatin [Pravachol] 40 mg PO DAILY 02/25/16 [History] Nitroglycerin [Nitrostat] 0.4 mg SL ASDIRECTED PRN 10/24/17 [History] Apixaban [Eliquis] 5 mg PO BID 05/04/19 [History] Montelukast [Singulair] 10 mg PO BEDTIME 05/04/19 [History] Baclofen 5 mg PO BEDTIME 05/26/21 [History] Budesonide/Formoterol [Symbicort 160-4.5 MCG] 2 puff IH BID 05/26/21 [History] Donepezil [Aricept] 5 mg PO BEDTIME 05/26/21 [History] Empagliflozin [Jardiance] 10 mg PO DAILY 05/26/21 [History] Fluticasone/Vilanterol [Breo Ellipta 200-25 MCG Inhalation Kit] 1 puff IH DAILY 05/26/21 [History] Tiotropium Stewardson [Spiriva Respimat] 2 puff IH DAILY 05/26/21 [History] metFORMIN [Glucophage] 500 mg PO DAILY 05/26/21 [History] Albuterol/Ipratropium [DuoNeb 3.0-0.5 MG/3 ML] 3 ml .XX Q4H PRN #15 ml 07/02/21 [Rx] Potassium Chloride 20 meq PO BID #7 tab.er.prt 07/02/21 [Rx] LORazepam [Ativan] 0.5 mg PO Q6H PRN 07/15/21 [History] Lidocaine 5% [Lidoderm 5%] 1 patch TOP DAILY #30 patch 07/26/21 [Rx] Potassium Chloride 20 meq PO DAILY #20 tablet.er 07/26/21 [Rx] Past Medical History HEENT History: Reports: Impaired Vision Cardiovascular History: Reports: Afib, CAD, High Cholesterol, Hypertension, [place], PVD, Other (See Below) Other Cardiovascular History: stents placed, peripheral artery disease, [place] 2006. 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: Musculoskeletal History: Reports: Osteoarthritis Neurological History: Reports: Other (See Below) Other Neuro History: back surgery-1995 Psychiatric History: Reports: Anxiety Endocrine/Metabolic History: Reports: Diabetes, Type II, Hypothyroidism, Obesity/BMI 30+ Other Endocrine/Metabolic History: Pt takes Metformin Oncologic (Cancer) History: Reports: Cervix - Infectious Disease History Infectious Disease History: Reports: Chicken Pox, Measles, Mumps, Scarlet Fever - Past Surgical History HEENT Surgical History: Reports: Adenoidectomy, Cataract Surgery, Tonsillectomy Cardiovascular Surgical History: Reports: Coronary Artery Stent, Other (See Below) Other Cardiovascular Surgeries/Procedures: 6 stents Respiratory Surgical History: Reports: None GI Surgical History: Reports: Appendectomy, Cholecystectomy, Hernia, Abdominal Female Surgical History: Reports: Hysterectomy Endocrine Surgical History: Reports: None Musculoskeletal Surgical History: Reports: None Oncologic Surgical History: Reports: None Dermatological Surgical History: Reports: None Social & Family History - Family History Family Medical History: No Pertinent Family History Cardiac: Reports: Blood Clots/VTE/DVT, Bypass, [place] Other Cardiac Family History: Mother had [place]. Other Respiratory Family Hisory: Brother of lung CA. Neurological: Reports: CVA Endocrine/Metabolic: Reports: Diabetes, type II Oncologic: Reports: Lung Other Oncologic Family History: Brother of lung [place]. 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 Constitutional: Reports: No Symptoms Respiratory: Reports: Pleuritic Chest Pain, Cough Cardiovascular: Reports: Chest Pain GI/Abdominal: Reports: No Symptoms : Reports: No Symptoms ED EXAM, GENERAL - Physical Exam Exam: See Below Exam Limited By: No Limitations General Appearance: Alert, No Apparent Distress Head: Normocephalic Neck: Normal Inspection, Supple Respiratory/Chest: No Respiratory Distress, Lungs Clear, Normal Breath Sounds. No: Chest Non-Tender Cardiovascular: Regular Rate, Rhythm, No Edema, No JVD GI/Abdominal: Normal Bowel Sounds, Soft, Non-Tender Back Exam: Normal Inspection Extremities: Normal Inspection, No Pedal Edema Neurological: Alert, Oriented Psychiatric: Normal Affect Skin Exam: Warm, Dry #1 Interpretation EKG Date: 07/26/21 Rhythm: NSR QRS: LBBB ST-T: Normal EKG Interpretation Comments: First-degree heart block. Course - Vital Signs Text/Narrative:: Patient's EKG and chest x-ray are unchanged from previous. Patient's labs are unremarkable including a normal troponin and D-dimer except for her potassium being low at 2.8. We are giving her some oral potassium currently. Patient is Lasix. She is feeling much better with lidocaine patch and is refusing the Toradol I offered because she has improved and is requesting to go home at this time. I will discharge her home with a prescription for more Lidoderm. Last Recorded V/S: Last Vital Signs Temp 96.8 F L 07/26/21 00:14 Pulse 66 07/26/21 00:14 Resp 20 07/26/21 00:14 BP 112/57 L 07/26/21 00:14 Pulse Ox 93 L 07/26/21 00:14 - Orders/Labs/Meds Orders: Active Orders 24 hr Category Date Time Status Chest 2V [CR] Stat Exams 07/26/21 00:36 Taken Lidocaine 4% [Aspercreme 4%] Med 07/26/21 00:37 Active 1 each TOP DAILY PRN Remove Patch Med 07/26/21 00:48 Active 1 ea JULIANDERM DAILY PRN Medication Orders Lidocaine (Lidocaine 4% 1 Each Patch) 1 each TOP DAILY PRN PRN Reason: Pain Last Admin: 07/26/21 00:49 Dose: 1 each Documented by: NICK Miscellaneous Information (Remove Patch) 1 ea JULIANDERRichar DAILY PRN PRN Reason: LIDO PATCH ORDER PRN Labs: Laboratory Tests 07/26/21 07/26/21 07/26/21 Range/Units 00:16 00:16 00:16 WBC 7.44 (3.98-10.04) K/mm3 RBC 4.42 (3.98-5.22) M/mm3 Hgb 14.0 (11.2-15.7) gm/dl Hct 42.9 (34.1-44.9) % MCV 97.1 H (79.4-94.8) fl MCH 31.7 (25.6-32.2) pg MCHC 32.6 (32.2-35.5) g/dl RDW Std Deviation 49.3 H (36.4-46.3) fL Plt Count 289 (182-369) K/mm3 MPV 9.9 (9.4-12.3) fl Neutrophils % (Manual) 64 H (40-60) % Band Neutrophils % 0 (0-10) % Lymphocytes % (Manual) 25 (20-40) % Atypical Lymphs % 0 % Monocytes % (Manual) 9 (2-10) % Eosinophils % (Manual) 2 (0.7-5.8) % Basophils % (Manual) 0 L (0.1-1.2) Platelet Estimate Adequate RBC Morph Comment Normal D-Dimer, Quantitative 0.30 (0.19-0.50) mg/L Sodium 143 (136-145) mEq/L Potassium 2.8 L (3.5-5.1) mEq/L Chloride 101 (98-107) mEq/L Carbon Dioxide 31 (21-32) mEq/L Anion Gap 13.8 (5-15) BUN 11 (7-18) mg/dL Creatinine 0.9 (0.55-1.02) mg/dL Est Cr Clr Drug Dosing 50.10 mL/min Estimated GFR (MDRD) > 60 (>60) mL/min BUN/Creatinine Ratio 12.2 L (14-18) Glucose 121 H (70-99) mg/dL Calcium 8.9 (8.5-10.1) mg/dL Total Bilirubin 0.5 (0.2-1.0) mg/dL AST 14 L (15-37) U/L ALT 18 (14-59) U/L Alkaline Phosphatase 88 (46-116) U/L Troponin I < 0.017 (0.00-0.056) ng/mL Total Protein 7.1 (6.4-8.2) g/dl Albumin 4.1 (3.4-5.0) g/dl Globulin 3.0 gm/dL Albumin/Globulin Ratio 1.4 (1-2) Influenza Type A RNA (NEGATIVE) Influenza Type B RNA (NEGATIVE) SARS-CoV-2 RNA (SHASHI) (NEGATIVE) 07/26/21 Range/Units 00:17 WBC (3.98-10.04) K/mm3 RBC (3.98-5.22) M/mm3 Hgb (11.2-15.7) gm/dl Hct (34.1-44.9) % MCV (79.4-94.8) fl MCH (25.6-32.2) pg MCHC (32.2-35.5) g/dl RDW Std Deviation (36.4-46.3) fL Plt Count (182-369) K/mm3 MPV (9.4-12.3) fl Neutrophils % (Manual) (40-60) % Band Neutrophils % (0-10) % Lymphocytes % (Manual) (20-40) % Atypical Lymphs % % Monocytes % (Manual) (2-10) % Eosinophils % (Manual) (0.7-5.8) % Basophils % (Manual) (0.1-1.2) Platelet Estimate RBC Morph Comment D-Dimer, Quantitative (0.19-0.50) mg/L Sodium (136-145) mEq/L Potassium (3.5-5.1) mEq/L Chloride (98-107) mEq/L Carbon Dioxide (21-32) mEq/L Anion Gap (5-15) BUN (7-18) mg/dL Creatinine (0.55-1.02) mg/dL Est Cr Clr Drug Dosing mL/min Estimated GFR (MDRD) (>60) mL/min BUN/Creatinine Ratio (14-18) Glucose (70-99) mg/dL Calcium (8.5-10.1) mg/dL Total Bilirubin (0.2-1.0) mg/dL AST (15-37) U/L ALT (14-59) U/L Alkaline Phosphatase (46-116) U/L Troponin I (0.00-0.056) ng/mL Total Protein (6.4-8.2) g/dl Albumin (3.4-5.0) g/dl Globulin gm/dL Albumin/Globulin Ratio (1-2) Influenza Type A RNA Negative (NEGATIVE) Influenza Type B RNA Negative (NEGATIVE) SARS-CoV-2 RNA (SHASHI) Negative (NEGATIVE) Meds: Medications Generic Name Dose Route Start Last Admin Trade Name Freq PRN Reason Stop Dose Admin Lidocaine 1 each 07/26/21 00:37 07/26/21 00:49 Lidocaine 4% 1 Each Patch TOP 1 each DAILY PRN Administration Pain Miscellaneous Information 1 ea 07/26/21 00:48 Remove Patch TRDERM DAILY PRN LIDO PATCH ORDER PRN Discontinued Medications Generic Name Dose Route Start Last Admin Trade Name Freq PRN Reason Stop Dose Admin Ketorolac Tromethamine 15 mg 07/26/21 01:42 MST Ketorolac 15 Mg/Ml Sdv IVPUSH 07/26/21 01:43 MST ONETIME ONE Lidocaine Confirm 07/26/21 00:43 07/26/21 00:48 Lidocaine 4% 1 Each Patch Administered 07/26/21 00:44 Not Given Dose 1 each .ROUTE .STK-MED ONE Departure - Departure Time of Disposition: 01:56 Disposition: Home, Self-Care 01 Condition: Good Clinical Impression: Costochondritis, acute Instructions: Costochondritis, [id number] Referrals: Amrit Arteaga MD [Primary Care Provider] - Forms: ED Department Discharge Additional Instructions: Voltaren gel and Lidoderm patches as needed. Follow-up with PCP if not improving. Return to emergency department symptoms worse or any exertional chest discomfort. Potassium replacement anteriorly follow-up with your PCP for recheck. Sepsis Event Note (ED) - Evaluation Sepsis Screening Result: No Definite Risk - Focused Exam Vital Signs: Vital Signs Temp Pulse Resp BP Pulse Ox 07/26/21 00:14 96.8 F L 66 20 112/57 L 93 L - My Orders Last 24 Hours: My Active Orders 07/26/21 00:36 Chest 2V [CR] Stat 07/26/21 00:37 Lidocaine 4% [Aspercreme 4%] 1 each TOP DAILY PRN 07/26/21 00:48 Remove Patch 1 ea TRDERM DAILY PRN - Assessment/Plan Last 24 Hours: My Active Orders 07/26/21 00:36 Chest 2V [CR] Stat 07/26/21 00:37 Lidocaine 4% [Aspercreme 4%] 1 each TOP DAILY PRN 07/26/21 00:48 Remove Patch 1 ea TRDERM DAILY PRN
[2021-07-26 01:13] LABS: CORONAVIRUS COVID-19 NAA NEGATIVE (NEGATIVE)
[2021-07-26] MEDS ORDERED: Ketorolac 15 MG/ML SDV IVPUSH ONE (01:42)
[2021-07-26] MEDS ORDERED: Potassium Chloride 20 MEQ Tab.ER PO ONE ×2 (01:52→01:53)
--- NOTE | 2021-07-26 05:54 | CR ---
Chest: PA and lateral views of the chest were obtained. Comparison: Prior chest x-ray of 07/15/21 and more remote exam of 05/04/19. Slight thickening of the minor fissure is seen on the lateral view which is stable from prior chest x-ray. Lungs are hyperinflated compatible with emphysematous change. Heart size is mildly enlarged. Tortuous thoracic aorta is seen. Lung markings are mildly increased which appear to be stable. No definite acute parenchymal change is seen. Scattered degenerative spurring is noted within the spine. Impression: 1. Emphysematous change. Mild cardiomegaly. 2. Other findings as described above. 3. Nothing acute is appreciated on two-view chest x-ray. Diagnostic code #2
== END 2021-07-26 01:09 | disposition home or self-care (01) ==
LOC: JD.ED 00:08
DX: M94.0 Chondrocostal junction syndrome [Tietze] (principal); I25.10 Atherosclerotic heart disease of native coronary artery without angina pectoris; E78.00 Pure hypercholesterolemia, unspecified; I10 Essential (primary) hypertension; I25.2 Old myocardial infarction; I48.91 Unspecified atrial fibrillation; J44.9 Chronic obstructive pulmonary disease, unspecified; K21.9 Gastro-esophageal reflux disease without esophagitis; E11.9 Type 2 diabetes mellitus without complications; E03.9 Hypothyroidism, unspecified; E66.9 Obesity, unspecified; Z68.34 Body mass index [BMI] 34.0-34.9, adult; Z79.01 Long term (current) use of anticoagulants; Z79.899 Other long term (current) drug therapy; Z79.84 Long term (current) use of oral hypoglycemic drugs; Z20.822 Contact with and (suspected) exposure to COVID-19
CPT/HCPCS: 0240U; 36415; 71046; 80053; 84484; 85007; 85027; 85379; 93005; 99284; A9270

== ENCOUNTER 2021-08-09 17:37 | Emergency (ER) | payer MEDICARE, BC ==
[2021-08-09 17:55] VITALS: BP 124/75; PULSE 68
[2021-08-09] MEDS ORDERED: Midazolam 1 MG/ML 2 ML SDV IVPUSH ONE ×2 (19:15→22:28)
--- NOTE | 2021-08-09 19:28 | EDM.PDOCBH ---
ED HPI GENERAL MEDICAL PROBLEM - General Chief Complaint: Chest Pain Stated Complaint: CHEST PAIN SOB Time Seen by Provider: 08/09/21 19:15 Source of Information: Reports: Patient History Limitations: Reports: No Limitations - History of Present Illness INITIAL COMMENTS - FREE TEXT/NARRATIVE: Patient is a 76-year-old female with a past medical history of COPD on home oxygen presenting with a chief complaint of severe anxiety. Patient reports she is feeling anxious for the past few months. She states it seems to have gotten worse over the past 3 days. Patient reports significant life stress that is making her feel anxious. She states she has been evaluated for lung cancer which seems to make symptoms worse as well. She states anxiety is so bad at this point that she wants her life to end. She has no significant plans for doing so and has had suicidal ideations in the past but no attempts. Patient currently takes 1 mg of lorazepam 4 times a day and states that does not do anything for her anxiety. She was also recently started on hydrocodone for diffuse body aches.. She is not currently experiencing any chest pain, shortness of breath, dizziness, palpitations, nausea, vomiting, abdominal pain. Chest Pain Score (Numeric/FACES): 7 - Related Data Allergies Allergy/AdvReac Type Severity Reaction Status Date / Time No Known Allergies Allergy Verified 08/09/21 17:56 Home Meds: Home Meds Furosemide [Lasix] 40 mg PO DAILY 05/18/15 [History] Isosorbide Mononitrate [Imdur] 60 mg PO BID 05/18/15 [History] Levothyroxine 112 mcg PO DAILY 05/18/15 [History] Pravastatin [Pravachol] 40 mg PO DAILY 02/25/16 [History] Nitroglycerin [Nitrostat] 0.4 mg SL ASDIRECTED PRN 10/24/17 [History] Apixaban [Eliquis] 5 mg PO BID 05/04/19 [History] Montelukast [Singulair] 10 mg PO BEDTIME 05/04/19 [History] Budesonide/Formoterol [Symbicort 160-4.5 MCG] 2 puff IH BID 05/26/21 [History] Donepezil [Aricept] 5 mg PO BEDTIME 05/26/21 [History] Tiotropium [place] [Spiriva Respimat] 2 puff IH DAILY 05/26/21 [History] metFORMIN [Glucophage] 500 mg PO DAILY 05/26/21 [History] Albuterol/Ipratropium [DuoNeb 3.0-0.5 MG/3 ML] 3 ml .XX Q4H PRN #15 ml 07/02/21 [Rx] LORazepam [Ativan] 1 mg PO Q6H PRN 07/15/21 [History] Potassium Chloride 20 meq PO DAILY #20 tablet.er 07/26/21 [Rx] Potassium Chloride 20 meq PO BID 7 Days #1 liquid 08/10/21 [Rx] Past Medical History HEENT History: Reports: Impaired Vision Cardiovascular History: Reports: Afib, CAD, High Cholesterol, Hypertension, NH, PVD, Other (See Below) Other Cardiovascular History: stents placed, peripheral artery disease, NH 2006. 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: Musculoskeletal History: Reports: Osteoarthritis Neurological History: Reports: Other (See Below) Other Neuro History: back surgery-1995 Psychiatric History: Reports: Anxiety Endocrine/Metabolic History: Reports: Diabetes, Type II, Hypothyroidism, Obesity/BMI 30+ Other Endocrine/Metabolic History: Pt takes Metformin Oncologic (Cancer) History: Reports: Cervix - Infectious Disease History Infectious Disease History: Reports: Chicken Pox, Measles, Mumps, Scarlet Fever - Past Surgical History HEENT Surgical History: Reports: Adenoidectomy, Cataract Surgery, Tonsillectomy Cardiovascular Surgical History: Reports: Coronary Artery Stent, Other (See Below) Other Cardiovascular Surgeries/Procedures: 6 stents Respiratory Surgical History: Reports: None GI Surgical History: Reports: Appendectomy, Cholecystectomy, Hernia, Abdominal Female Surgical History: Reports: Hysterectomy Endocrine Surgical History: Reports: None Musculoskeletal Surgical History: Reports: None Oncologic Surgical History: Reports: None Dermatological Surgical History: Reports: None Social & Family History - Family History Family Medical History: No Pertinent Family History Cardiac: Reports: Blood Clots/VTE/DVT, Bypass, NH Other Cardiac Family History: Mother had NH. Other Respiratory Family Hisory: Brother of lung CA. Neurological: Reports: CVA Endocrine/Metabolic: Reports: Diabetes, type II Oncologic: Reports: Lung Other Oncologic Family History: Brother of lung CA. 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) ED ROS GENERAL - Review of Systems Review Of Systems: See Below Free Text/Narrative/Comment: In addition to that documented in the HPI above, the additional ROS was obtained: Constitutional: Denies fevers or chills Eyes: Denies vision changes ENMT: Denies sore throat CV: Denies chest pain Resp: Denies SOB GI: Denies vomiting or diarrhea : Denies painful urination MSK: Denies recent trauma Skin: Denies new rashes Neuro: Denies new numbness or tingling or weakness Endocrine: Denies unexpected weight loss Heme: Denies bleeding disorders ED EXAM, BEHAVIORAL HEALTH - Physical Exam Exam: See Below Text/Narrative:: I have reviewed the triage vital signs Const: Well nourished, well developed, appears stated age Eyes: Pupils Equal and reactive to light bilaterally, no conjunctival injection HENT: No signs of trauma or swelling, Neck supple without meningismus CV: Regular Rate Rhythm, Warm, well-perfused extremities RESP: Unlabored respiratory effort GI: soft, non-tender, non-distended, no masses MSK: No gross deformities appreciated Skin: Warm, dry. 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 Sensation and motor function of extremities grossly intact. Psych: Appears mildly anxious but mood is marcus #1 Interpretation EKG Date: 08/09/21 Time: 17:55 Rhythm: A-Fib Rate (Beats/Min): 63 [place]: Normal QRS: RBBB ST-T: Depressed QT: Normal Comparison: No Change #2 Interpretation EKG Date: 08/10/21 Time: 06:25 Rhythm: NSR Rate (Beats/Min): 58 COURSE, BEHAVIORAL HEALTH COMP - Course Vital Signs: Last Vital Signs Temp 36.7 C 08/09/21 17:51 Pulse 68 08/09/21 17:51 Resp 18 08/09/21 17:51 BP 124/75 08/09/21 17:51 Pulse Ox 98 08/09/21 17:51 Orders, Labs, Meds: Laboratory Tests 08/09/21 08/09/21 08/09/21 Range/Units 19:05 19:26 19:26 WBC 8.64 (3.98-10.04) K/mm3 RBC 4.45 (3.98-5.22) M/mm3 Hgb 14.3 (11.2-15.7) gm/dl Hct 43.4 (34.1-44.9) % MCV 97.5 H (79.4-94.8) fl MCH 32.1 (25.6-32.2) pg MCHC 32.9 (32.2-35.5) g/dl RDW Std Deviation 48.0 H (36.4-46.3) fL Plt Count 295 (182-369) K/mm3 MPV 9.8 (9.4-12.3) fl Neut % (Auto) 72.6 H (34.0-71.1) % Lymph % (Auto) 16.3 L (19.3-51.7) % [place] % (Auto) 9.4 (4.7-12.5) % Eos % (Auto) 1.3 (0.7-5.8) Baso % (Auto) 0.2 (0.1-1.2) % Neut # (Auto) 6.27 H (1.56-6.13) K/mm3 Lymph # (Auto) 1.41 (1.18-3.74) K/mm3 [place] # (Auto) 0.81 H (0.24-0.36) K/mm3 Eos # (Auto) 0.11 (0.04-0.36) K/mm3 Baso # (Auto) 0.02 (0.01-0.08) K/mm3 Manual Slide Review Not Reportable Sodium 141 (136-145) mEq/L Potassium 2.5 L (3.5-5.1) mEq/L Chloride 99 (98-107) mEq/L Carbon Dioxide 31 (21-32) mEq/L Anion Gap 13.5 (5-15) BUN 10 (7-18) mg/dL Creatinine 0.7 (0.55-1.02) mg/dL Est Cr Clr Drug Dosing TNP Estimated GFR (MDRD) > 60 (>60) mL/min BUN/Creatinine Ratio 14.3 (14-18) Glucose 111 H (70-99) mg/dL Calcium 9.1 (8.5-10.1) mg/dL Total Bilirubin 0.7 (0.2-1.0) mg/dL AST 17 (15-37) U/L ALT 16 (14-59) U/L Alkaline Phosphatase 76 (46-116) U/L Troponin I 0.029 (0.00-0.056) ng/mL Total Protein 7.3 (6.4-8.2) g/dl Albumin 4.1 (3.4-5.0) g/dl Globulin 3.2 gm/dL Albumin/Globulin Ratio 1.3 (1-2) TSH 3rd Generation 0.298 L (0.358-3.74) uIU/mL Salicylates (2.8-20) mg/dL Urine Opiates Screen Presumptive positive H (GRREZN=635) Ur Buprenorphine Scrn Negative (CUTOFF=10) Ur Oxycodone Screen Negative (EWB0RM=846) Urine Methadone Screen Negative (DNPBBD=224) Ur Propoxyphene Screen Negative (WGJBGP=775) Acetaminophen 0 L (10-30) ug/mL Ur Barbiturates Screen Negative (YUEMQA=223) Ur Tricyclics Screen Negative (NRYHMZ=231) Ur Phencyclidine Scrn Negative (CUTOFF=25) Ur Amphetamine Screen Negative (ITGWGD=832) U Methamphetamines Scrn Negative (MHWMFG=154) U Benzodiazepines Scrn Presumptive positive H (YSCVEN=709) U Cocaine Metab Screen Negative (AHOTXG=737) U Marijuana (THC) Screen Negative (CUTOFF=50) Ethyl Alcohol 0.00 (0.00) gm% 08/09/21 08/09/21 08/10/21 Range/Units 19:26 23:10 05:40 WBC (3.98-10.04) K/mm3 RBC (3.98-5.22) M/mm3 Hgb (11.2-15.7) gm/dl Hct (34.1-44.9) % MCV (79.4-94.8) fl MCH (25.6-32.2) pg MCHC (32.2-35.5) g/dl RDW Std Deviation (36.4-46.3) fL Plt Count (182-369) K/mm3 MPV (9.4-12.3) fl Neut % (Auto) (34.0-71.1) % Lymph % (Auto) (19.3-51.7) % [place] % (Auto) (4.7-12.5) % Eos % (Auto) (0.7-5.8) Baso % (Auto) (0.1-1.2) % Neut # (Auto) (1.56-6.13) K/mm3 Lymph # (Auto) (1.18-3.74) K/mm3 [place] # (Auto) (0.24-0.36) K/mm3 Eos # (Auto) (0.04-0.36) K/mm3 Baso # (Auto) (0.01-0.08) K/mm3 Manual Slide Review Sodium 141 144 (136-145) mEq/L Potassium 2.5 L 2.6 L (3.5-5.1) mEq/L Chloride 100 103 (98-107) mEq/L Carbon Dioxide 33 H 32 (21-32) mEq/L Anion Gap 10.5 11.6 (5-15) BUN 8 7 (7-18) mg/dL Creatinine 0.7 0.6 (0.55-1.02) mg/dL Est Cr Clr Drug Dosing TNP TNP Estimated GFR (MDRD) > 60 > 60 (>60) mL/min BUN/Creatinine Ratio 11.4 L 11.7 L (14-18) Glucose 103 H 98 (70-99) mg/dL Calcium 8.6 8.6 (8.5-10.1) mg/dL Total Bilirubin (0.2-1.0) mg/dL AST (15-37) U/L ALT (14-59) U/L Alkaline Phosphatase (46-116) U/L Troponin I (0.00-0.056) ng/mL Total Protein (6.4-8.2) g/dl Albumin (3.4-5.0) g/dl Globulin gm/dL Albumin/Globulin Ratio (1-2) TSH 3rd Generation (0.358-3.74) uIU/mL Salicylates < 0.2 L (2.8-20) mg/dL Urine Opiates Screen (EOMGHL=010) Ur Buprenorphine Scrn (CUTOFF=10) Ur Oxycodone Screen (OXX6TU=794) Urine Methadone Screen (QFCJZY=858) Ur Propoxyphene Screen (MCHYNK=969) Acetaminophen (10-30) ug/mL Ur Barbiturates Screen (EBXTMY=933) Ur Tricyclics Screen (BNJNWM=565) Ur Phencyclidine Scrn (CUTOFF=25) Ur Amphetamine Screen (NOAAJL=555) U Methamphetamines Scrn (QRJXQH=417) U Benzodiazepines Scrn (SLZUWU=535) U Cocaine Metab Screen (OLFLHV=265) U Marijuana (THC) Screen (CUTOFF=50) Ethyl Alcohol (0.00) gm% Medications Discontinued Medications Generic Name Dose Route Start Last Admin Trade Name Freq PRN Reason Stop Dose Admin Potassium Chloride 10 meq/ 100 mls @ 100 mls/hr 08/09/21 20:22 08/09/21 20:41 Premix IV 08/09/21 21:21 100 mls/hr ONETIME ONE Administration Magnesium Sulfate 2 gm/ Premix 50 mls @ 25 mls/hr 08/09/21 20:22 08/09/21 20:40 IV 08/09/21 22:21 25 mls/hr ONETIME ONE Administration Potassium Chloride 10 meq/ 100 mls @ 100 mls/hr 08/10/21 00:29 08/10/21 00:43 Premix IV 08/10/21 01:28 100 mls/hr ONETIME ONE Administration Potassium Chloride 10 meq/ 100 mls @ 100 mls/hr 08/10/21 02:45 08/10/21 02:58 Premix IV 08/10/21 03:44 100 mls/hr ONETIME ONE Administration Lorazepam 1 mg 08/10/21 00:28 08/10/21 00:48 Lorazepam 2 Mg/Ml Sdv IVPUSH 08/10/21 00:29 1 mg ONETIME ONE Administration Midazolam HCl 1 mg 08/09/21 19:15 Midazolam 1 Mg/Ml 2 Ml Sdv IVPUSH 08/09/21 19:16 ONETIME ONE Midazolam HCl 2 mg 08/09/21 19:39 08/09/21 19:48 Midazolam 1 Mg/Ml 2 Ml Sdv IM 08/09/21 19:40 2 mg ONETIME ONE Administration Midazolam HCl 1 mg 08/09/21 22:28 08/09/21 22:45 Midazolam 1 Mg/Ml 2 Ml Sdv IVPUSH 08/09/21 22:29 1 mg ONETIME ONE Administration Potassium Chloride 40 meq 08/09/21 20:22 08/09/21 20:48 Potassium Chloride 20 Meq Tab.Er PO 08/09/21 20:23 40 meq ONETIME ONE Administration Quetiapine Fumarate 50 mg 08/10/21 00:28 08/10/21 00:58 Quetiapine 25 Mg Tab PO 08/10/21 00:29 50 mg ONETIME ONE Administration Departure - Departure Time of Disposition: 06:43 Disposition: Home, Self-Care 01 Clinical Impression: Anxiety, Hypokalemia - Discharge Information Prescriptions: Potassium Chloride 20 meq PO BID 7 Days #1 liquid Instructions: Hypokalemia, Managing Anxiety, Adult Referrals: Amrit Arteaga MD [Primary Care Provider] - Forms: ED Department Discharge Sepsis Event Note (ED) - Evaluation Sepsis Screening Result: No Definite Risk - Assessment/Plan Assessment:: Patient 76-year-old female presenting with anxiety. Laboratory studies demonstrating significant hypokalemia. Unfortunately in the emergency room, only IV and extended release oral formulations were available. On repeat testing, potassium only slightly improved. And trending her labs, she did have previous hypokalemia. I decided to increase her dose of oral potassium at home. Otherwise, no concern for acute coronary syndrome or other significant cardiac abnormality. Patient is on large amounts of benzodiazepines at home. She did talk about feeling depressed and wanting to but not endorsing any active suicidal ideations. We did discuss appropriate outpatient management for this. I do not believe it is warranted for inpatient psychiatric admission at this time. Patient agrees with this. She will be given appropriate return precautions and discharge with outpatient management.
[2021-08-09] MEDS ORDERED: Midazolam 1 MG/ML 2 ML SDV IM ONE (19:39)
[2021-08-09 20:18] LABS: ACETAMINOPHEN 0 ug/mL (10-30)
[2021-08-09] MEDS ORDERED: Potassium Chloride 10 MEQ in Premix Bag 1 BAG IV ONE (20:22)
[2021-08-09] MEDS ORDERED: Magnesium Sulfate/Water 2 GM in Premix Bag 1 BAG IV ONE (20:22)
[2021-08-09] MEDS ORDERED: Potassium Chloride 20 MEQ Tab.ER PO ONE (20:22)
[2021-08-10] MEDS ORDERED: LORazepam 2 MG/ML SDV IVPUSH ONE (00:28)
[2021-08-10] MEDS ORDERED: QUEtiapine 25 MG Tab PO ONE (00:28)
[2021-08-10] MEDS ORDERED: Potassium Chloride 10 MEQ in Premix Bag 1 BAG IV ONE ×2 (00:29→02:45)
== END 2021-08-10 07:00 | disposition home or self-care (01) ==
LOC: JD.ED 17:37
DX: F41.9 Anxiety disorder, unspecified (principal); E87.6 Hypokalemia; J44.9 Chronic obstructive pulmonary disease, unspecified; I25.10 Atherosclerotic heart disease of native coronary artery without angina pectoris; E78.00 Pure hypercholesterolemia, unspecified; I10 Essential (primary) hypertension; I25.2 Old myocardial infarction; K21.9 Gastro-esophageal reflux disease without esophagitis; E11.9 Type 2 diabetes mellitus without complications; E03.9 Hypothyroidism, unspecified; E66.9 Obesity, unspecified; M19.90 Unspecified osteoarthritis, unspecified site; Z68.30 Body mass index [BMI] 30.0-30.9, adult; Z79.01 Long term (current) use of anticoagulants; Z79.84 Long term (current) use of oral hypoglycemic drugs; Z79.899 Other long term (current) drug therapy
CPT/HCPCS: 36415; 80048; 80053; 80143; 80179; 80306; 80307; 84443; 84484; 85025; 93005; 96365; 96366; 96367; 96368; 96372; 96375; 99283; A9270; J2060; J2250; J3475; J3480

== ENCOUNTER 2021-09-03 14:24 | Emergency (ER) | payer MEDICARE, BC ==
[2021-09-03 14:58] VITALS: BP 111/54; PULSE 68
[2021-09-03] MEDS ORDERED: Sodium Chloride 0.9% 10 ML Syringe FLUSH PRN (15:04)
--- NOTE | 2021-09-03 15:20 | EDM.PDOC ---
ED HPI GENERAL MEDICAL PROBLEM - General Chief Complaint: Gastrointestinal Problem Stated Complaint: REF BY PHY BLEEDING INSIDE Time Seen by Provider: 09/03/21 15:03 Source of Information: Reports: Patient, RN Notes Reviewed History Limitations: Reports: No Limitations - History of Present Illness INITIAL COMMENTS - FREE TEXT/NARRATIVE: Patient is a 76-year-old female who presents to the ER for evaluation of her dark tarry stools. States she has been having issues with black-colored stools for about 2 weeks now. She states that last night however it did turn into a very dark tarry stool, and states that her dizziness/lightheadedness has increased. She was assessed by her home health nurse today and she told him about her stools, and her primary care doctor, Dr. Arteaga thought she should come to the ER for evaluation. Patient states that over the last 2 weeks she has felt increasingly dizzy and lightheaded. She does wear oxygen as needed and it is wearing it at this time and around 2 L via nasal cannula. Not complaining of any increasing shortness of breath, fever, nausea/vomiting/diarrhea. Patient is on Eliquis 5 mg twice daily, she cannot remember what for however. - Related Data Allergies Allergy/AdvReac Type Severity Reaction Status Date / Time No Known Allergies Allergy Verified 09/03/21 14:58 Home Meds: Home Meds Furosemide [Lasix] 40 mg PO DAILY 05/18/15 [History] Isosorbide Mononitrate [Imdur] 60 mg PO BID 05/18/15 [History] Levothyroxine 112 mcg PO DAILY 05/18/15 [History] Pravastatin [Pravachol] 40 mg PO DAILY 02/25/16 [History] Nitroglycerin [Nitrostat] 0.4 mg SL ASDIRECTED PRN 10/24/17 [History] Apixaban [Eliquis] 5 mg PO BID 05/04/19 [History] Montelukast [Singulair] 10 mg PO BEDTIME 05/04/19 [History] Budesonide/Formoterol [Symbicort 160-4.5 MCG] 2 puff IH BID 05/26/21 [History] Donepezil [Aricept] 5 mg PO BEDTIME 05/26/21 [History] Tiotropium [place] [Spiriva Respimat] 2 puff IH DAILY 05/26/21 [History] metFORMIN [Glucophage] 500 mg PO DAILY 05/26/21 [History] Albuterol/Ipratropium [DuoNeb 3.0-0.5 MG/3 ML] 3 ml .XX Q4H PRN #15 ml 07/02/21 [Rx] LORazepam [Ativan] 1 mg PO Q6H PRN 07/15/21 [History] Potassium Chloride 20 meq PO DAILY #20 tablet.er 07/26/21 [Rx] Potassium Chloride 20 meq PO BID 7 Days #1 liquid 08/10/21 [Rx] Past Medical History HEENT History: Reports: Impaired Vision Cardiovascular History: Reports: Afib, CAD, High Cholesterol, Hypertension, [place], PVD, Other (See Below) Other Cardiovascular History: stents placed, peripheral artery disease, [place] 2006. 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: Musculoskeletal History: Reports: Osteoarthritis Neurological History: Reports: Other (See Below) Other Neuro History: back surgery-1995 Psychiatric History: Reports: Anxiety Endocrine/Metabolic History: Reports: Diabetes, Type II, Hypothyroidism, Obesity/BMI 30+ Oncologic (Cancer) History: Reports: Cervix - Infectious Disease History Infectious Disease History: Reports: Chicken Pox, Measles, Mumps, Scarlet Fever - Past Surgical History HEENT Surgical History: Reports: Adenoidectomy, Cataract Surgery, Tonsillectomy Cardiovascular Surgical History: Reports: Coronary Artery Stent, Other (See Below) Other Cardiovascular Surgeries/Procedures: 6 stents GI Surgical History: Reports: Appendectomy, Cholecystectomy, Hernia, Abdominal Female Surgical History: Reports: Hysterectomy Social & Family History - Family History Family Medical History: No Pertinent Family History Cardiac: Reports: Blood Clots/VTE/DVT, Bypass, [place] Other Cardiac Family History: Mother had NM. Other Respiratory Family Hisory: Brother of lung CA. Neurological: Reports: CVA Endocrine/Metabolic: Reports: Diabetes, type II Oncologic: Reports: Lung Other Oncologic Family History: Brother of lung CA. 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 ED EXAM, GI/ABD - Physical Exam Exam: See Below Exam Limited By: No Limitations General Appearance: Alert, WD/WN, No Apparent Distress Respiratory/Chest: No Respiratory Distress, Lungs Clear, Normal Breath Sounds, No Accessory Muscle Use, Chest Non-Tender Cardiovascular: Normal Peripheral Pulses, Regular Rate, Rhythm, No Edema GI/Abdominal Exam: Normal Bowel Sounds, Soft, Non-Tender, No Distention, No Mass Rectal (Female) Exam: Heme + Stool Extremities: Normal Inspection, Normal Capillary Refill Neurological: Alert, Oriented, Normal Cognition, No Motor/Sensory Deficits Psychiatric: Normal Affect, Normal Mood Skin Exam: Warm, Dry, Intact, Normal Color, No Rash Course - Vital Signs Last Recorded V/S: Last Vital Signs Temp 97.8 F 09/03/21 14:53 Pulse 68 09/03/21 14:53 Resp 20 09/03/21 14:53 BP 111/54 L 09/03/21 14:53 Pulse Ox 94 L 09/03/21 14:53 - Orders/Labs/Meds Orders: Active Orders 24 hr Category Date Time Status Peripheral IV Care [RC] . DIRECTED Care 09/03/21 15:04 Ordered PATIENT RETYPE [BBK] Routine Lab 09/03/21 15:45 Ordered Sodium Chloride 0.9% [Saline Flush] Med 09/03/21 15:04 Ordered 10 ml FLUSH ASDIRECTED PRN Peripheral IV Insertion Adult [OM.PC] Routine Oth 09/03/21 15:04 Ordered Medication Orders Sodium Chloride (Sodium Chloride 0.9% 10 Ml Syringe) 10 ml FLUSH ASDIRECTED PRN PRN Reason: Keep Vein Open Labs: Laboratory Tests 09/03/21 09/03/21 09/03/21 Range/Units 15:38 15:38 15:38 WBC 7.56 (3.98-10.04) K/mm3 RBC 3.73 L (3.98-5.22) M/mm3 Hgb 12.1 D (11.2-15.7) gm/dl Hct 37.6 (34.1-44.9) % MCV 100.8 H D (79.4-94.8) fl MCH 32.4 H (25.6-32.2) pg MCHC 32.2 (32.2-35.5) g/dl RDW Std Deviation 48.6 H (36.4-46.3) fL Plt Count 322 (182-369) K/mm3 MPV 9.8 (9.4-12.3) fl Neut % (Auto) 74.1 H (34.0-71.1) % Lymph % (Auto) 15.6 L (19.3-51.7) % [place] % (Auto) 7.4 (4.7-12.5) % Eos % (Auto) 2.2 (0.7-5.8) Baso % (Auto) 0.3 (0.1-1.2) % Neut # (Auto) 5.60 (1.56-6.13) K/mm3 Lymph # (Auto) 1.18 (1.18-3.74) K/mm3 [place] # (Auto) 0.56 H (0.24-0.36) K/mm3 Eos # (Auto) 0.17 (0.04-0.36) K/mm3 Baso # (Auto) 0.02 (0.01-0.08) K/mm3 PT 10.9 (9.7-12.0) SECONDS INR 0.98 APTT 25.6 (21.7-31.4) SECONDS Sodium 142 (136-145) mEq/L Potassium 4.0 (3.5-5.1) mEq/L Chloride 104 (98-107) mEq/L Carbon Dioxide 28 (21-32) mEq/L Anion Gap 14.0 (5-15) BUN 11 (7-18) mg/dL Creatinine 0.7 (0.55-1.02) mg/dL Est Cr Clr Drug Dosing 64.41 mL/min Estimated GFR (MDRD) > 60 (>60) mL/min BUN/Creatinine Ratio 15.7 (14-18) Glucose 131 H (70-99) mg/dL Calcium 8.4 L (8.5-10.1) mg/dL Total Bilirubin 0.5 (0.2-1.0) mg/dL AST 16 (15-37) U/L ALT 16 (14-59) U/L Alkaline Phosphatase 101 (46-116) U/L Total Protein 6.6 (6.4-8.2) g/dl Albumin 3.5 (3.4-5.0) g/dl Globulin 3.1 gm/dL Albumin/Globulin Ratio 1.1 (1-2) Blood Type Gel Antibody Screen 09/03/21 Range/Units 15:38 WBC (3.98-10.04) K/mm3 RBC (3.98-5.22) M/mm3 Hgb (11.2-15.7) gm/dl Hct (34.1-44.9) % MCV (79.4-94.8) fl MCH (25.6-32.2) pg MCHC (32.2-35.5) g/dl RDW Std Deviation (36.4-46.3) fL Plt Count (182-369) K/mm3 MPV (9.4-12.3) fl Neut % (Auto) (34.0-71.1) % Lymph % (Auto) (19.3-51.7) % [place] % (Auto) (4.7-12.5) % Eos % (Auto) (0.7-5.8) Baso % (Auto) (0.1-1.2) % Neut # (Auto) (1.56-6.13) K/mm3 Lymph # (Auto) (1.18-3.74) K/mm3 [place] # (Auto) (0.24-0.36) K/mm3 Eos # (Auto) (0.04-0.36) K/mm3 Baso # (Auto) (0.01-0.08) K/mm3 PT (9.7-12.0) SECONDS INR APTT (21.7-31.4) SECONDS Sodium (136-145) mEq/L Potassium (3.5-5.1) mEq/L Chloride (98-107) mEq/L Carbon Dioxide (21-32) mEq/L Anion Gap (5-15) BUN (7-18) mg/dL Creatinine (0.55-1.02) mg/dL Est Cr Clr Drug Dosing mL/min Estimated GFR (MDRD) (>60) mL/min BUN/Creatinine Ratio (14-18) Glucose (70-99) mg/dL Calcium (8.5-10.1) mg/dL Total Bilirubin (0.2-1.0) mg/dL AST (15-37) U/L ALT (14-59) U/L Alkaline Phosphatase (46-116) U/L Total Protein (6.4-8.2) g/dl Albumin (3.4-5.0) g/dl Globulin gm/dL Albumin/Globulin Ratio (1-2) Blood Type B POSITIVE Gel Antibody Screen Negative Meds: Medications Generic Name Dose Route Start Last Admin Trade Name Freq PRN Reason Stop Dose Admin Sodium Chloride 10 ml 09/03/21 15:04 Sodium Chloride 0.9% 10 Ml Syringe FLUSH ASDIRECTED PRN Keep Vein Open - Re-Assessments/Exams Free Text/Narrative Re-Assessment/Exam: 09/03/21 15:20 Patient presents to the ER for evaluation of her dark tarry stools. We will get IV established, get some baseline labs for initial evaluation. Patient vitals are stable at the time of triage. 09/03/21 16:56 Patient's hemoglobin was within normal limits at 12.1. All other labs essentially unremarkable, blood pressure has stayed stable while the patient's been in the ER. We will have her decrease her Eliquis dose to 1 time a day and have her do strict follow-up with Dr. Artegaa, patient verbalized understanding of this plan. She will return to the ER if her symptoms should change or worsen. She was made aware of strict return precautions. Departure - Departure Time of Disposition: 16:58 Disposition: Home, Self-Care 01 Condition: Good Clinical Impression: Lower GI bleed - Discharge Information *PRESCRIPTION DRUG MONITORING PROGRAM REVIEWED*: No *COPY OF PRESCRIPTION DRUG MONITORING REPORT IN PATIENT TEJINDER: No Instructions: Gastrointestinal Bleeding, [id number] Referrals: Amrit Arteaga MD [Physician] - Forms: ED Department Discharge Additional Instructions: You were evaluated in the ER today for your dark tarry stools. You are on a blood thinner, which is thought to be making this worse. Instead of taking your Eliquis 2 times a day; we will have you decrease this to 1 time a day. Your laboratory evaluation done at today's visit demonstrates a hemoglobin within normal limits. If you should develop any worsening dizziness/lightheadedness, or worsening dark tarry stools, do not hesitate to return to the ER for ongoing management. You will need to follow-up with Dr. Arteaga in the short future, please call his office tomorrow to obtain an appointment, either tomorrow afternoon, or early Tuesday morning to check on symptoms to make sure that they are getting better as expected. Again if things should change or worsen at all, do not hesitate to return to the ER for further evaluation. Sepsis Event Note (ED) - Evaluation Sepsis Screening Result: No Definite Risk - Focused Exam Vital Signs: Vital Signs Temp Pulse Resp BP Pulse Ox 09/03/21 14:53 97.8 F 68 20 111/54 L 94 L - My Orders Last 24 Hours: My Active Orders 09/03/21 15:04 Peripheral IV Care [RC] . DIRECTED Sodium Chloride 0.9% [Saline Flush] 10 ml FLUSH ASDIRECTED PRN Peripheral IV Insertion Adult [OM.PC] Routine 09/03/21 15:45 PATIENT RETYPE [BBK] Routine - Assessment/Plan Last 24 Hours: My Active Orders 09/03/21 15:04 Peripheral IV Care [RC] . DIRECTED Sodium Chloride 0.9% [Saline Flush] 10 ml FLUSH ASDIRECTED PRN Peripheral IV Insertion Adult [OM.PC] Routine 09/03/21 15:45 PATIENT RETYPE [BBK] Routine
== END 2021-09-03 17:10 | disposition home or self-care (01) ==
LOC: JD.ED 14:24
DX: K92.2 Gastrointestinal hemorrhage, unspecified (principal); I48.91 Unspecified atrial fibrillation; I25.10 Atherosclerotic heart disease of native coronary artery without angina pectoris; E78.00 Pure hypercholesterolemia, unspecified; I10 Essential (primary) hypertension; I25.2 Old myocardial infarction; J44.9 Chronic obstructive pulmonary disease, unspecified; E11.9 Type 2 diabetes mellitus without complications; E03.9 Hypothyroidism, unspecified; M19.90 Unspecified osteoarthritis, unspecified site; E66.9 Obesity, unspecified; Z68.28 Body mass index [BMI] 28.0-28.9, adult; Z79.01 Long term (current) use of anticoagulants; Z79.899 Other long term (current) drug therapy; Z79.84 Long term (current) use of oral hypoglycemic drugs; Z87.891 Personal history of nicotine dependence
CPT/HCPCS: 36415; 80053; 85025; 85610; 85730; 86850; 86900; 86901; 99284

== ENCOUNTER 2021-09-14 19:41 | Emergency (ER) | payer MEDICARE, BC ==
[2021-09-14 20:35] VITALS: BP 144/90; PULSE 103
[2021-09-14] MEDS ORDERED: Albuterol/Ipratropium 3.0-0.5 MG/3 ML Neb Soln NEB ONE (21:54)
[2021-09-14] MEDS ORDERED: Furosemide 40 MG/4 ML VIAL IVPUSH ONE (22:15)
--- NOTE | 2021-09-14 23:18 | EDM.PDOC ---
ED HPI GENERAL MEDICAL PROBLEM - General Chief Complaint: Cardiovascular Problem Stated Complaint: UNABLE TO BREATHE Time Seen by Provider: 09/14/21 20:00 Source of Information: Reports: Patient History Limitations: Reports: No Limitations - History of Present Illness INITIAL COMMENTS - FREE TEXT/NARRATIVE: Patient is a 76-year-old female with a history of CHF, COPD, anxiety presenting with a chief complaint of difficulty breathing. Patient reports the symptoms have been ongoing for the past few weeks. Patient states nothing seems to make symptoms better or worse. Patient denies any chest pain, lightheadedness, dizziness. Patient has noticed increased lower extremity swelling. Patient states she only takes half of her furosemide every once in a while. Patient reports mild increase in cough without fevers. Patient does use inhaler medications with mild relief. Chest Pain Score (Numeric/FACES): 8 - Related Data Allergies Allergy/AdvReac Type Severity Reaction Status Date / Time No Known Allergies Allergy Verified 09/03/21 14:58 Home Meds: Home Meds Furosemide [Lasix] 40 mg PO DAILY 05/18/15 [History] Isosorbide Mononitrate [Imdur] 60 mg PO BID 05/18/15 [History] Levothyroxine 112 mcg PO DAILY 05/18/15 [History] Pravastatin [Pravachol] 40 mg PO DAILY 02/25/16 [History] Nitroglycerin [Nitrostat] 0.4 mg SL ASDIRECTED PRN 10/24/17 [History] Apixaban [Eliquis] 5 mg PO BID 05/04/19 [History] Montelukast [Singulair] 10 mg PO BEDTIME 05/04/19 [History] Budesonide/Formoterol [Symbicort 160-4.5 MCG] 2 puff IH BID 05/26/21 [History] Donepezil [Aricept] 5 mg PO BEDTIME 05/26/21 [History] Tiotropium [place] [Spiriva Respimat] 2 puff IH DAILY 05/26/21 [History] metFORMIN [Glucophage] 500 mg PO DAILY 05/26/21 [History] Albuterol/Ipratropium [DuoNeb 3.0-0.5 MG/3 ML] 3 ml .XX Q4H PRN #15 ml 07/02/21 [Rx] LORazepam [Ativan] 1 mg PO Q6H PRN 07/15/21 [History] Potassium Chloride 20 meq PO DAILY #20 tablet.er 07/26/21 [Rx] Potassium Chloride 20 meq PO BID 7 Days #1 liquid 08/10/21 [Rx] Azithromycin [Zithromax] 250 mg PO DAILY #6 tablet 09/14/21 [Rx] Past Medical History HEENT History: Reports: Impaired Vision Cardiovascular History: Reports: Afib, CAD, High Cholesterol, Hypertension, [place], PVD, Other (See Below) Other Cardiovascular History: stents placed, peripheral artery disease, [place] 2006. 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: Musculoskeletal History: Reports: Osteoarthritis Neurological History: Reports: Other (See Below) Other Neuro History: back surgery-1995 Psychiatric History: Reports: Anxiety Endocrine/Metabolic History: Reports: Diabetes, Type II, Hypothyroidism, Obesity/BMI 30+ Other Endocrine/Metabolic History: Pt takes Metformin Oncologic (Cancer) History: Reports: Cervix - Infectious Disease History Infectious Disease History: Reports: Chicken Pox, Measles, Mumps, Scarlet Fever - Past Surgical History HEENT Surgical History: Reports: Adenoidectomy, Cataract Surgery, Tonsillectomy Cardiovascular Surgical History: Reports: Coronary Artery Stent, Other (See Below) Other Cardiovascular Surgeries/Procedures: 6 stents Respiratory Surgical History: Reports: None GI Surgical History: Reports: Appendectomy, Cholecystectomy, Hernia, Abdominal Female Surgical History: Reports: Hysterectomy Endocrine Surgical History: Reports: None Musculoskeletal Surgical History: Reports: None Oncologic Surgical History: Reports: None Dermatological Surgical History: Reports: None Social & Family History - Family History Family Medical History: No Pertinent Family History Cardiac: Reports: Blood Clots/VTE/DVT, Bypass, NE Other Cardiac Family History: Mother had NE. Other Respiratory Family Hisory: Brother of lung CA. Neurological: Reports: CVA Endocrine/Metabolic: Reports: Diabetes, type II Oncologic: Reports: Lung Other Oncologic Family History: Brother of lung CA. 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) ED ROS GENERAL - Review of Systems Review Of Systems: See Below Free Text/Narrative/Comment: In addition to that documented in the HPI above, the additional ROS was obtained: Constitutional: Denies fevers or chills Eyes: Denies vision changes ENMT: Denies sore throat CV: Denies chest pain Resp: Per HPI GI: Denies vomiting or diarrhea : Denies painful urination MSK: Denies recent trauma Skin: Denies new rashes Neuro: Denies new numbness or tingling or weakness Endocrine: Denies unexpected weight loss Heme: Denies bleeding disorders ED EXAM, GENERAL - Physical Exam Exam: See Below Free Text/Narrative:: I have reviewed the triage vital signs Const: Well nourished, well developed, appears stated age Eyes: Pupils Equal and reactive to light bilaterally, no conjunctival injection HENT: No signs of trauma or swelling, Neck supple without meningismus CV: Regular Rate Rhythm, Warm, well-perfused extremities RESP: Unlabored respiratory effort. No wheezing or rales. GI: soft, non-tender, non-distended, no masses MSK: No gross deformities appreciated Skin: Warm, dry. No rashes Neuro: Alert, drafter (cad) electronic II-XII grossly intact. Sensation and motor function of extremities grossly intact. Psych: Appropriate mood and affect. #1 Interpretation EKG Date: 09/14/21 Time: 21:12 Rhythm: A-Flutter Rate (Beats/Min): 71 [place]: Normal P-Wave: Present QRS: RBBB ST-T: Normal QT: Normal Comparison: No Change EKG Interpretation Comments: Abnormal EKG Course - Vital Signs Last Recorded V/S: Last Vital Signs Temp 36.4 C 09/14/21 20:33 Pulse 103 H 09/14/21 20:33 Resp 22 H 09/14/21 20:33 BP 144/90 H 09/14/21 20:33 Pulse Ox 95 09/14/21 21:54 - Orders/Labs/Meds Orders: Active Orders 24 hr Category Date Time Status RT Aerosol Therapy [RC] ASDIRECTED Care 09/14/21 21:54 Active Chest 1V Frontal [CR] Stat Exams 09/14/21 21:05 Taken Labs: Laboratory Tests 09/14/21 09/14/2109/14/21 Range/Units 21:17 21:20 21:20 WBC 8.53 (3.98-10.04) K/mm3 RBC 3.73 L (3.98-5.22) M/mm3 Hgb 11.9 (11.2-15.7) gm/dl Hct 37.7 (34.1-44.9) % MCV 101.1 H (79.4-94.8) fl MCH 31.9 (25.6-32.2) pg MCHC 31.6 L (32.2-35.5) g/dl RDW Std Deviation 51.6 H (36.4-46.3) fL Plt Count 295 (182-369) K/mm3 MPV 9.4 (9.4-12.3) fl Neut % (Auto) 80.4 H (34.0-71.1) % Lymph % (Auto) 10.9 L (19.3-51.7) % [place] % (Auto) 7.0 (4.7-12.5) % Eos % (Auto) 1.1 (0.7-5.8) Baso % (Auto) 0.2 (0.1-1.2) % Neut # (Auto) 6.86 H (1.56-6.13) K/mm3 Lymph # (Auto) 0.93 L (1.18-3.74) K/mm3 [place] # (Auto) 0.60 H (0.24-0.36) K/mm3 Eos # (Auto) 0.09 (0.04-0.36) K/mm3 Baso # (Auto) 0.02 (0.01-0.08) K/mm3 PT (9.7-12.0) SECONDS INR VBG pH 7.43 H (7.30-7.40) VBG pCO2 37.6 L (41-51) mmHg VBG pO2 64.0 (40-80) mmHG VBG HCO3 24.5 (22-26) meq/L VBG O2 Saturation 94.6 VBG Base Excess 0.9 (-4.0-2.0) O2 Delivery Device Nasal cannula Oxygen Flow Rate 3.0 Sodium 140 (136-145) mEq/L Potassium 4.0 (3.5-5.1) mEq/L Chloride 103 (98-107) mEq/L Carbon Dioxide 28 (21-32) mEq/L Anion Gap 13.0 (5-15) BUN 9 (7-18) mg/dL Creatinine 0.7 (0.55-1.02) mg/dL Est Cr Clr Drug Dosing 64.41 mL/min Estimated GFR (MDRD) > 60 (>60) mL/min BUN/Creatinine Ratio 12.9 L (14-18) Glucose 124 H (70-99) mg/dL Calcium 8.8 (8.5-10.1) mg/dL Total Bilirubin 1.0 (0.2-1.0) mg/dL AST 12 L (15-37) U/L ALT 17 (14-59) U/L Alkaline Phosphatase 81 (46-116) U/L Troponin I < 0.017 (0.00-0.056) ng/mL NT-Pro-B Natriuret Pep (0-450) pg/mL Total Protein 7.1 (6.4-8.2) g/dl Albumin 3.6 (3.4-5.0) g/dl Globulin 3.5 gm/dL Albumin/Globulin Ratio 1.0 (1-2) 09/14/21 09/14/21 Range/Units 21:20 21:30 WBC (3.98-10.04) K/mm3 RBC (3.98-5.22) M/mm3 Hgb (11.2-15.7) gm/dl Hct (34.1-44.9) % MCV (79.4-94.8) fl MCH (25.6-32.2) pg MCHC (32.2-35.5) g/dl RDW Std Deviation (36.4-46.3) fL Plt Count (182-369) K/mm3 MPV (9.4-12.3) fl Neut % (Auto) (34.0-71.1) % Lymph % (Auto) (19.3-51.7) % [place] % (Auto) (4.7-12.5) % Eos % (Auto) (0.7-5.8) Baso % (Auto) (0.1-1.2) % Neut # (Auto) (1.56-6.13) K/mm3 Lymph # (Auto) (1.18-3.74) K/mm3 [place] # (Auto) (0.24-0.36) K/mm3 Eos # (Auto) (0.04-0.36) K/mm3 Baso # (Auto) (0.01-0.08) K/mm3 PT 10.9 (9.7-12.0) SECONDS INR 0.98 VBG pH (7.30-7.40) VBG pCO2 (41-51) mmHg VBG pO2 (40-80) mmHG VBG HCO3 (22-26) meq/L VBG O2 Saturation VBG Base Excess (-4.0-2.0) O2 Delivery Device Oxygen Flow Rate Sodium (136-145) mEq/L Potassium (3.5-5.1) mEq/L Chloride (98-107) mEq/L Carbon Dioxide (21-32) mEq/L Anion Gap (5-15) BUN (7-18) mg/dL Creatinine (0.55-1.02) mg/dL Est Cr Clr Drug Dosing mL/min Estimated GFR (MDRD) (>60) mL/min BUN/Creatinine Ratio (14-18) Glucose (70-99) mg/dL Calcium (8.5-10.1) mg/dL Total Bilirubin (0.2-1.0) mg/dL AST (15-37) U/L ALT (14-59) U/L Alkaline Phosphatase (46-116) U/L Troponin I (0.00-0.056) ng/mL NT-Pro-B Natriuret Pep 2758 H (0-450) pg/mL Total Protein (6.4-8.2) g/dl Albumin (3.4-5.0) g/dl Globulin gm/dL Albumin/Globulin Ratio (1-2) Meds: Medications Discontinued Medications Generic Name Dose Route Start Last Admin Trade Name Freq PRN Reason Stop Dose Admin Albuterol/Ipratropium 3 ml 09/14/21 21:54 09/14/21 22:30 Albuterol/Ipratropium 3.0-0.5 Mg/3 Ml Neb Soln NEB 09/14/21 21:55 3 ml ONETIME ONE Administration Furosemide 40 mg 09/14/21 22:15 09/14/21 22:34 Furosemide 40 Mg/4 Ml Vial IVPUSH 09/14/21 22:16 40 mg NOW ONE Administration Departure - Departure Time of Disposition: 23:17 Disposition: Home, Self-Care 01 Clinical Impression: Congestive heart failure Qualifiers: Heart failure type: unspecified Heart failure chronicity: unspecified Qualified Code(s): I50.9 - Heart failure, unspecified Prescriptions: Azithromycin [Zithromax] 250 mg PO DAILY #6 tablet Instructions: Heart Failure, Self-Care, [id number] Referrals: Amrit Arteaga MD [Primary Care Provider] - Forms: ED Department Discharge Additional Instructions: Take your furosemide 40 mg twice daily for the next 3 days. After that, please take furosemide 40 mg every day for the next 1 week. Please follow-up with your primary care physician within the next 1 week. Return to the emergency room should symptoms worsen. Sepsis Event Note (ED) - Focused Exam Vital Signs: Vital Signs Temp Pulse Resp BP Pulse Ox Pulse Ox 09/14/21 21:54 95 09/14/21 20:33 36.4 C 103 H 22 H 144/90 H 88 L - My Orders Last 24 Hours: My Active Orders 09/14/21 21:05 Chest 1V Frontal [CR] Stat 09/14/21 21:54 RT Aerosol Therapy [RC] ASDIRECTED - Assessment/Plan Last 24 Hours: My Active Orders 09/14/21 21:05 Chest 1V Frontal [CR] Stat 09/14/21 21:54 RT Aerosol Therapy [RC] ASDIRECTED Assessment:: Patient is a 76-year-old female on home oxygen presenting with a chief complaint of shortness of breath. Patient is not in respiratory distress. Broad diff erential diagnosis considered for this patient include CHF exacerbation, COPD exacerbation, pneumonia, ACS. Laboratory studies and EKG reviewed with evidence of increased BNP but no other significant abnormalities. Chest x-ray shows evidence of increased pulmonary vascular congestion. Also pleural effusion. Patient given 40 mg of Lasix in the emergency room. At this point, patient will be treated as an outpatient and instructed to take her Lasix every day. Instructed to follow-up with primary care within the next 2 days. All questions were addressed and answered. Return precautions given as usual.
--- NOTE | 2021-09-15 09:12 | CR ---
Chest: Portable view of the chest was obtained. Comparison: Prior chest x-ray of 07/26/21. Heart is enlarged. Tortuous thoracic aorta is seen. Pulmonary vessels are felt to be congested and slightly more prominent than on prior chest x-ray. Scattered disc space narrowing is noted within the thoracic spine with endplate spurring. Impression: 1. Findings suspicious for CHF as described above. Diagnostic code #3
== END 2021-09-14 23:30 | disposition home or self-care (01) ==
LOC: JD.ED 19:41 → SUPCPDRO 19:41 → JD.ED 23:30
DX: I11.0 Hypertensive heart disease with heart failure (principal); I50.9 Heart failure, unspecified; I45.10 Unspecified right bundle-branch block; I48.92 Unspecified atrial flutter; I48.91 Unspecified atrial fibrillation; I25.10 Atherosclerotic heart disease of native coronary artery without angina pectoris; I25.2 Old myocardial infarction; E78.00 Pure hypercholesterolemia, unspecified; J43.9 Emphysema, unspecified; E11.9 Type 2 diabetes mellitus without complications; E03.9 Hypothyroidism, unspecified; E66.9 Obesity, unspecified; Z68.33 Body mass index [BMI] 33.0-33.9, adult; Z87.891 Personal history of nicotine dependence; Z79.01 Long term (current) use of anticoagulants; Z79.84 Long term (current) use of oral hypoglycemic drugs; Z79.899 Other long term (current) drug therapy
CPT/HCPCS: 36415; 71045; 80053; 82803; 83880; 84484; 85025; 85610; 93005; 94640; 96374; 99285; J1940; J7620-GY

== ENCOUNTER 2022-06-04 13:18 | Emergency (ER) | payer MEDICARE, BC ==
[2022-06-04 13:34] VITALS: BP 104/53; PULSE 66
[2022-06-04] MEDS ORDERED: Aspirin 81 MG Tab.Chew PO ONE (13:34)
[2022-06-04] MEDS ORDERED: rOPINIRole 0.25 MG Tab PO ONE (14:12)
[2022-06-04 14:44] LABS: ESTIMATED GFR 57 mL/min (>60)
[2022-06-04] MEDS ORDERED: Furosemide 40 MG/4 ML VIAL IVPUSH ONE (16:07)
== END 2022-06-04 19:19 | disposition home or self-care (01) ==
LOC: JD.ED 13:18
DX: J43.9 Emphysema, unspecified (principal); R07.9 Chest pain, unspecified; E03.9 Hypothyroidism, unspecified; R09.02 Hypoxemia; E66.9 Obesity, unspecified; I10 Essential (primary) hypertension; I25.10 Atherosclerotic heart disease of native coronary artery without angina pectoris; I25.2 Old myocardial infarction; E11.51 Type 2 diabetes mellitus with diabetic peripheral angiopathy without gangrene; Z79.84 Long term (current) use of oral hypoglycemic drugs; Z79.01 Long term (current) use of anticoagulants; Z79.899 Other long term (current) drug therapy
CPT/HCPCS: 36415; 71045; 80053; 81001; 82553; 83735; 83880; 84443; 84484; 85025; 85610; 85652; 85730; 86140; 93005; 96374; 99285; A9270; J1940; 93010; 99284

== ENCOUNTER 2022-09-04 11:28 | Emergency (ER) | payer MEDICARE, BC ==
[2022-09-04] MEDS ORDERED: Sodium Chloride 0.9% 1,000 ML IV SCH (12:30)
[2022-09-04 13:18] LABS: CORONAVIRUS COVID-19 NAA NEGATIVE (NEGATIVE)
[2022-09-04] MEDS ORDERED: Furosemide 40 MG/4 ML VIAL IVPUSH ONE (13:49)
[2022-09-04] MEDS ORDERED: Cephalexin 500 MG Cap PO ONE (14:34)
[2022-09-04 15:45] VITALS: BP 129/73; PULSE 76
== END 2022-09-04 15:24 | disposition home or self-care (01) ==
LOC: JD.ED 11:28
DX: I11.0 Hypertensive heart disease with heart failure (principal); I50.9 Heart failure, unspecified; N39.0 Urinary tract infection, site not specified; R41.0 Disorientation, unspecified; I25.10 Atherosclerotic heart disease of native coronary artery without angina pectoris; J44.9 Chronic obstructive pulmonary disease, unspecified; E78.00 Pure hypercholesterolemia, unspecified; E11.9 Type 2 diabetes mellitus without complications; I25.2 Old myocardial infarction; E66.9 Obesity, unspecified; Z68.35 Body mass index [BMI] 35.0-35.9, adult; Z79.899 Other long term (current) drug therapy; Z79.01 Long term (current) use of anticoagulants; Z79.84 Long term (current) use of oral hypoglycemic drugs; Z90.49 Acquired absence of other specified parts of digestive tract; Z90.710 Acquired absence of both cervix and uterus; Z87.891 Personal history of nicotine dependence; Z20.822 Contact with and (suspected) exposure to COVID-19
CPT/HCPCS: 0241U; 36415; 71045; 80053; 81001; 83880; 84484; 85025; 86140; 87086; 93005; 96361; 96374; 99285; A9270; J1940; J7030

== ENCOUNTER 2022-11-14 15:31 | Emergency (ER) | payer BC, MEDICARE ==
[2022-11-14] MEDS ORDERED: Sodium Chloride 0.9% 10 ML Syringe FLUSH PRN (16:17)
[2022-11-14] MEDS ORDERED: Sodium Chloride 0.9% 1,000 ML IV STA (16:34)
[2022-11-14] MEDS ORDERED: Ondansetron 4 MG/2 ML SDV IVPUSH ONE ×2 (16:34→18:59)
[2022-11-14] MEDS ORDERED: Iopamidol 612 MG/ML 100 ML Bottle IVPUSH ONE (17:56)
[2022-11-14] MEDS ORDERED: Iopamidol 612 MG/ML 50 ML SDV IVPUSH ONE (17:56)
[2022-11-14] MEDS ORDERED: Sodium Chloride 0.9% 10 ML Syringe FLUSH ONE (18:00)
[2022-11-14 18:52] LABS: CORONAVIRUS COVID-19 NAA NEGATIVE (NEGATIVE)
[2022-11-15 02:54] VITALS: BP 116/77; PULSE 66
== END 2022-11-14 19:30 | disposition home or self-care (01) ==
LOC: JD.ED 15:31
DX: K52.9 Noninfective gastroenteritis and colitis, unspecified (principal); J44.9 Chronic obstructive pulmonary disease, unspecified; I25.119 Atherosclerotic heart disease of native coronary artery with unspecified angina pectoris; E78.00 Pure hypercholesterolemia, unspecified; I25.2 Old myocardial infarction; I10 Essential (primary) hypertension; E03.9 Hypothyroidism, unspecified; E11.9 Type 2 diabetes mellitus without complications; E66.9 Obesity, unspecified; Z68.33 Body mass index [BMI] 33.0-33.9, adult; Z79.899 Other long term (current) drug therapy; Z79.01 Long term (current) use of anticoagulants; Z79.84 Long term (current) use of oral hypoglycemic drugs; Z87.891 Personal history of nicotine dependence; Z20.822 Contact with and (suspected) exposure to COVID-19
CPT/HCPCS: 0241U; 36415; 71045; 74177; 80053; 81001; 83735; 83880; 84484; 85025; 86140; 93005; 96361; 96374; 96376; 99284; J2405; J3490; J7030; Q9967; 93010

== ENCOUNTER 2023-09-09 06:14 | Emergency (ER) | payer MEDICARE, MEDICAID ==
[2023-09-09] MEDS ORDERED: LORazepam 1 MG Tab PO ONE (06:19)
[2023-09-09 08:32] VITALS: BP 126/76; PULSE 90
== END 2023-09-09 08:20 | disposition home or self-care (01) ==
LOC: JD.ED 06:14
DX: T40.2X1A Poisoning by other opioids, accidental (unintentional), initial encounter (principal); I10 Essential (primary) hypertension; E78.00 Pure hypercholesterolemia, unspecified; I25.2 Old myocardial infarction; I25.10 Atherosclerotic heart disease of native coronary artery without angina pectoris; I48.91 Unspecified atrial fibrillation; J44.9 Chronic obstructive pulmonary disease, unspecified; K21.9 Gastro-esophageal reflux disease without esophagitis; E11.9 Type 2 diabetes mellitus without complications; E03.9 Hypothyroidism, unspecified; E66.9 Obesity, unspecified; Z95.5 Presence of coronary angioplasty implant and graft; Z90.49 Acquired absence of other specified parts of digestive tract; Z90.710 Acquired absence of both cervix and uterus; Z79.84 Long term (current) use of oral hypoglycemic drugs; Z79.899 Other long term (current) drug therapy
CPT/HCPCS: 99284; A9270

== ENCOUNTER 2024-03-06 11:00 | Emergency (ER) | payer MEDICARE, MEDICAID ==
[2024-03-06 11:14] VITALS: PULSE 67
[2024-03-06 11:52] LABS: BASOPHILS PERCENT AUTO 0.4 % (0.0-1.0); EOSINOPHILS ABSOLUTE AUTO 0.1 K/mm3 (0.0-0.4); EOSINOPHILS PERCENT AUTO 1.3 % (0.0-6.0); HEMATOCRIT 38.8 % (37.0-47.0); HEMOGLOBIN 12.7 gm/dl (12.0-16.0); IMMATURE GRAN ABSOLUTE AUTO 0.01 K/mm3 (0.00-0.05); IMMATURE GRAN PERCENT AUTO 0.1 % (0.0-0.4); LYMPHOCYTES ABSOLUTE AUTO 1.1 K/mm3 (1.0-4.8); MEAN CORPUSCULAR HEMOGLOBIN 35.6 pg (28.0-32.0); MEAN CORPUSCULAR HGB CONC 32.7 g/dl (32.0-36.0); MEAN CORPUSCULAR VOLUME 108.7 fl (83.0-99.0); MEAN PLATELET VOLUME 9.7 fl (9.4-12.3); MONOCYTES ABSOLUTE AUTO 0.5 K/mm3 (0.0-0.8); MONOCYTES PERCENT AUTO 7.7 % (0.0-8.0); NEUTROPHILS ABSOLUTE AUTO 5.1 K/mm3 (1.8-7.7); NEUTROPHILS PERCENT AUTO 74.5 % (41.0-71.0); PLATELET COUNT,PLT 223 K/mm3 (150-400); RED BLOOD CELL COUNT 3.57 M/mm3 (4.10-5.30); WHITE BLOOD CELL COUNT,WBC 6.87 K/mm3 (3.9-11.3)
[2024-03-06 12:03] LABS: LACTIC ACID 1.6 mmol/L (0.4-2.0)
[2024-03-06 12:15] LABS: ALBUMIN 3.7 g/dl (3.4-5.0); ANION GAP 12.4 (5-15); BILIRUBIN TOTAL 0.5 mg/dL (0.2-1.0); BUN/CREATININE RATIO 15.7 (14-18); C-REACTIVE PROTEIN 0.39 mg/dL (<0.30); CALCIUM 9.3 mg/dL (8.5-10.1); CREATININE 0.7 mg/dL (0.55-1.02); EST CRCL DRUG DOSING (CG) 61.17 mL/min; POTASSIUM,K 3.4 mEq/L (3.5-5.1); PROTEIN TOTAL,TP 7.6 g/dl (6.4-8.2); TSH 1.332 uIU/mL (0.358-3.74)
[2024-03-06] MEDS: Furosemide 40 MG/4 ML VIAL IVPUSH ONE (12:25)
[2024-03-06 12:26] LABS: APPEARANCE,URINE CLEAR (Clear); BILIRUBIN,URINE NEGATIVE (Negative); COLOR,URINE YELLOW (Yellow); GLUCOSE,URINE NEGATIVE (Negative); KETONES,URINE NEGATIVE (Negative); LEUKOCYTE ESTERASE,URINE NEGATIVE (Negative); NITRITE,URINE NEGATIVE (Negative); OCCULT BLOOD,URINE TRACE-LYSED (Negative); PROTEIN,URINE NEGATIVE (Negative); UROBILINOGEN,URINE 0.2 (0.2-1.0)
[2024-03-06] MEDS: Sodium Chloride 0.9% 10 ML Syringe FLUSH PRN (12:26)
[2024-03-06 12:36] LABS: BACTERIA,URINE RARE /hpf (FEW); EPITHELIAL CELLS,URINE 0-5 /hpf (0-5); MUCUS,URINE RARE /hpf (FEW); WBC,URINE 0-5 /hpf (0-5)
[2024-03-06 13:55] VITALS: BP 141/74
[2024-03-06] MEDS ORDERED: LORazepam 0.5 MG Tab PO ONE (14:01)
[2024-03-06] MEDS: LORazepam 1 MG Tab PO ONE (14:06)
[2024-03-06 14:55] LABS: FOLIC ACID 11.1 ng/mL (8.6-58.9)
== END 2024-03-06 14:53 | disposition home or self-care (01) ==
LOC: JD.ED 11:00
DX: I11.0 Hypertensive heart disease with heart failure (principal); I50.33 Acute on chronic diastolic (congestive) heart failure; E78.00 Pure hypercholesterolemia, unspecified; I48.91 Unspecified atrial fibrillation; K21.9 Gastro-esophageal reflux disease without esophagitis; I25.2 Old myocardial infarction; E11.9 Type 2 diabetes mellitus without complications; E03.9 Hypothyroidism, unspecified; Z90.49 Acquired absence of other specified parts of digestive tract; Z79.899 Other long term (current) drug therapy; Z79.51 Long term (current) use of inhaled steroids; Z79.01 Long term (current) use of anticoagulants; Z79.890 Hormone replacement therapy; Z79.84 Long term (current) use of oral hypoglycemic drugs; Z95.5 Presence of coronary angioplasty implant and graft
CPT/HCPCS: 36415; 71045; 80053; 81001; 82607; 82746; 83605; 83735; 83880; 84443; 84484; 85025; 86140; 93005; 96374; 99285; A9270; J1940; J3490; 93010; 99284